=== PATIENT | male | born 1930 | race Caucasian/White ===

== ENCOUNTER 2016-04-23 20:54 | Emergency (ER) | payer MEDICARE ==
--- NOTE | 2016-04-23 21:19 | ER Document Report ---
ED Medical Screen (RME) - General Chief Complaint: Leg Pain Stated Complaint: POSSIBLE BLOOD CLOT Mode of Arrival: Wheelchair Information source: Patient Notes: Patient had a laminectomy L 3-4-5, performed yesterday (by Dr Brito at [facility]) complaining of right lower extremity pain. Pt denies any fever. Patient states that he was able to get up and ambulate until about 3 PM today whenever he started to have right lower extremities pain and weakness. Patient spoke with the surgeon who advised him to come to the hospital for further evaluation. I have greeted and performed a rapid initial assessment of this patient. A comprehensive ED assessment and evaluation of the patient, analysis of test results and completion of the medical decision making process will be conducted by additional ED providers. TRAVEL OUTSIDE OF THE [place] IN LAST 30 DAYS: No - Related Data Allergies/Adverse Reactions: No Known Allergies Allergy (Unverified 04/27/15 15:04) Past Medical History - Past Medical History Cardiac Medical History: Reports: Hx Hypertension - MEDICATED Denies: Hx Heart Attack Pulmonary Medical History: Denies: Hx Asthma Neurological Medical History: Denies: Hx Cerebrovascular Accident, Hx Seizures Renal/ Medical History: Reports: Hx Benign Prostatic Hyperplasia GI Medical History: Reports: Hx Hiatal Hernia. Denies: Hx Hepatitis, Hx Ulcer Musculoskeltal Medical History: Reports Hx Arthritis, Reports Hx Muscle Weakness Psychiatric Medical History: Reports: Hx Anxiety, Hx Depression Infectious Medical History: Denies: Hx Hepatitis Past Surgical History: Denies: Hx Open Heart Surgery, Hx Pacemaker Physical Exam - Vital signs Vitals: Temp Pulse Resp BP Pulse Ox 98.6 F 72 18 124/70 93 04/23/16 21:01 04/23/16 21:01 04/23/16 21:01 04/23/16 21:01 04/23/16 21:01 - Cardiovascular Pulses: Normal: Dorsalis pedis - Extremities General lower extremity: Tender - Right lower boyd any Course - Re-evaluation Re-evalutation: 04/23/16 21:[address] Palomo who advises MRI of lumbar spine - Vital Signs Vital signs: Temp Pulse Resp BP Pulse Ox 98.6 F 72 18 124/70 93 04/23/16 21:01 04/23/16 21:01 04/23/16 21:01 04/23/16 21:01 04/23/16 21:01
--- NOTE | 2016-04-23 23:59 | ER Document Report ---
ED General - General Chief Complaint: Weakness Stated Complaint: POSSIBLE BLOOD CLOT Mode of Arrival: Wheelchair Notes: Patient is an 85-year-old male status post laminectomy surgery at the L4-5 junction yesterday who presents today with shooting pain down his right buttock and leg. Does describe the pain as a severe, intermittent shooting pain. It is worsened by attempts at walking. Moderately improved by oxycodone. No history of similar symptoms in the past. Spoke to the on-call physician who recommended he come to the emergency department for evaluation of a possible DVT. He has no history of such. He is not taking any anticoagulation. He has not had any falls or trauma to the area since the surgery. He has not had any weakness, numbness, bowel or bladder incontinence, or urinary retention. TRAVEL OUTSIDE OF THE [place] IN LAST 30 DAYS: No - Related Data Allergies/Adverse Reactions: No Known Allergies Allergy (Unverified 04/27/15 15:04) Past Medical History - General Information source: Patient - Social History Smoking Status: Never Smoker Frequency of alcohol use: None Drug Abuse: None Lives with: Spouse/Significant other Family History: Reviewed & Not Pertinent Patient has suicidal ideation: No Patient has homicidal ideation: No - Past Medical History Cardiac Medical History: Reports: Hx Hypertension - MEDICATED Denies: Hx Heart Attack Pulmonary Medical History: Denies: Hx Asthma Neurological Medical History: Denies: Hx Cerebrovascular Accident, Hx Seizures Renal/ Medical History: Reports: Hx Benign Prostatic Hyperplasia. Denies: Hx Peritoneal Dialysis GI Medical History: Reports: Hx Hiatal Hernia. Denies: Hx Hepatitis, Hx Ulcer Musculoskeltal Medical History: Reports Hx Arthritis, Reports Hx Muscle Weakness Psychiatric Medical History: Reports: Hx Anxiety, Hx Depression Infectious Medical History: Denies: Hx Hepatitis Past Surgical History: Denies: Hx Open Heart Surgery, Hx Pacemaker Review of Systems - Review of Systems Notes: Constitutional: Negative for fever. HENT: Negative for sore throat. Eyes: Negative for visual changes. Cardiovascular: Negative for chest pain. Respiratory: Negative for shortness of breath. Gastrointestinal: Negative for abdominal pain, vomiting or diarrhea. Genitourinary: Negative for dysuria. Musculoskeletal: Positive for back pain right-sided sciatic pain. Skin: Negative for rash. Neurological: Negative for headaches, weakness or numbness. 10 point ROS negative except as marked above and in HPI. Physical Exam - Vital signs Vitals: Temp Pulse Resp BP Pulse Ox 98.6 F 72 18 124/70 93 04/23/16 21:01 04/23/16 21:01 04/23/16 21:01 04/23/16 21:01 04/23/16 21:01 Interpretation: Normal Notes: PHYSICAL EXAMINATION: GENERAL: Well-appearing, well-nourished and in no acute distress. HEAD: Atraumatic, normocephalic. EYES: Pupils equal round and reactive to light, extraocular movements intact, sclera anicteric, conjunctiva are normal. ENT: nares patent, oropharynx clear without exudates. Moist mucous membranes. NECK: Normal range of motion, supple without lymphadenopathy LUNGS: Breath sounds clear to auscultation bilaterally and equal. No wheezes rales or rhonchi. HEART: Regular rate and rhythm without murmurs ABDOMEN: Soft, nontender, normoactive bowel sounds. No guarding, no rebound. No masses appreciated. Back: Excisional site on the mid lumbar spine appears to be well-healing, no. Drainage or surrounding erythema. EXTREMITIES: Positive right straight leg test. Patient is able to ambulate. NEUROLOGICAL: 5 out of 5 strength both distally and proximally bilateral lower extremities. 2+ patellar reflexes bilaterally. No clonus. Sensation grossly intact in the bilateral lower extremities. Patient is able to ambulate without difficulty. PSYCH: Normal mood, normal affect. SKIN: Warm, Dry, normal turgor, no rashes or lesions noted. Course - Re-evaluation Re-evalutation: 04/23/16 23:57 Patient presents with a clinical history and exam most consistent with acute sciatic nerve root irritation in the setting of a recent laminectomy. No signs of infection around the incisional site. Patient is ambulatory without difficulty. Full strength and sensation in the bilateral lower extremities. Clinical history is not consistent with acute DVT and the venous Doppler study is unremarkable without any evidence of an acute clot. At this time will discharge with return precautions and follow-up recommendations. Verbal discharge instructions given a the bedside and opportunity for questions given. Medication warnings reviewed. Patient is in agreement with this plan and has verbalized understanding of return precautions and the need for primary care follow-up in the next 24-72 hours. - Vital Signs Vital signs: Temp Pulse Resp BP Pulse Ox 97.9 F 62 16 110/61 92 04/24/16 00:19 04/24/16 00:19 04/24/16 00:19 04/24/16 00:19 04/24/16 00:19 Discharge - Discharge Clinical Impression: Right sciatic nerve pain Condition: Good Disposition: HOME, SELF-CARE Additional Instructions: Her pain is likely due to an irritation of her sciatic nerve on the right side. This should improve as the swelling and inflammation from your surgery decreases. For your pain: You can take 1-2 of the 5 mg Percocet every 4 hours. Do not exceed more than 12 tablets in 24 hours. Please follow closely with your surgeon. Return if you develop bowel or bladder incontinence, urinary retention, have worsening of your pain, or have any other symptoms that are concerning to you. Referrals: EDGAR FOUNTAIN MD [Primary Care Provider] - Follow up as needed
[2016-04-24 00:22] VITALS: BP 110/61
== END 2016-04-24 00:23 | disposition home or self-care (01) ==
LOC: ER 20:54
DX: M54.31 Sciatica, right side (principal); R53.1 Weakness
CPT/HCPCS: 93971; 99283

== ENCOUNTER 2016-08-13 19:20 | Emergency (ER) | payer MEDICARE ==
--- NOTE | 2016-08-13 21:24 | RADIOLOGY REPORT (SQ) ---
EXAM DESCRIPTION: CT SOFT TISSUE NECK WITHOUT COMPLETED DATE/TIME: 08/13/2016 9:00 pm REASON FOR STUDY: foreign body in throat COMPARISON: None. TECHNIQUE: Noncontrast scanning from skull base through lung apices with review of bone, soft tissue and lung windows. Reconstructed coronal and sagittal MPR images reviewed. All images stored on PAC S. All CT scanners at this facility use dose modulation, iterative reconstruction, and/or weight based d osing when appropriate to reduce radiation dose to as low as reasonably achievable (ALARA). [facility]: Dose Right [facility]: CareDose [facility]: Dose Right [facility]: Teradose 4D [facility]: dough RADIATION DOSE: 13.47 mGy. LIMITATIONS: Study is limited due to motion artifact and artifact related to dental hardware. FINDINGS: SKULL BASE: Intact. MAJOR SALIVARY GLANDS: No solid or cystic masses. No inflammatory changes. LYMPHADENOPATHY: No adenopathy. MUCOSAL MASSES OR ASYMMETRY: No mucosal masses or asymmetry. LARYNX/CORDS: No abnormal findings. LUNG APICES: Clear. BONES: Degenerative changes are identified in the cervical spine. THYROID: Normal size. No masses. PARANASAL SINUSES: Clear. OTHER: No radiopaque foreign body is identified. The visualized portions of the esophagus appears so mewhat distended with an air-fluid level being identified and the possibility of a distal obstruction should be considered. IMPRESSION: No radiopaque foreign body is identified. The visualized portions of the esophagus appe ars somewhat distended with an air-fluid level being identified and the possibility of a distal obstr uction should be considered. Other findings as noted above. TECHNICAL DOCUMENTATION: JOB ID: [id number] Quality ID # [id number]: Final reports with documentation of one or more dose reduction techniques (e.g., Au tomated exposure control, adjustment of the mA and/or kV according to patient size, use of iterative reconstruction technique) 2010 [employer]- All Rights Reserved
[2016-08-13] MEDS ORDERED: NITROGLYCERIN 0.4 MG/TAB 25 TAB/BOTTLE SL ONE (22:42)
--- NOTE | 2016-08-13 22:43 | ER Document Report ---
ED Foreign Body - General Chief Complaint: Swallowed Foreign Body Stated Complaint: SOMETHING LODGED IN THROAT Time Seen by Provider: 08/13/16 22:33 Mode of Arrival: Ambulatory Information source: Patient TRAVEL OUTSIDE OF THE [place] IN LAST 30 DAYS: No - HPI Patient complains to provider of: Esophageal foreign body Onset: This afternoon Onset/Duration: Sudden, Persistent Quality of pain: Achy Severity: Moderate Pain Level: 3 Exacerbated by: Denies Relieved by: Denies Similar symptoms previously: Yes - Self resolving Recently seen / treated by doctor: Yes Notes: Patient is an 86-year-old male who presents to the emergency room complaining of esophageal foreign body, around 5 PM he ate dinner which consisted of rice with codfish and 3 prather salad, since then he has been unable to swallow liquid or foreign bodies, he does report a history of this in the past, however it self resolved after some time, he did have a colonoscopy performed earlier in the morning - Related Data Allergies/Adverse Reactions: No Known Allergies Allergy (Unverified 08/13/16 19:31) Past Medical History - General Information source: Patient - Social History Smoking Status: Never Smoker Family History: Reviewed & Not Pertinent - Past Medical History Cardiac Medical History: Reports: Hx Hypertension - MEDICATED Denies: Hx Heart Attack Pulmonary Medical History: Denies: Hx Asthma Neurological Medical History: Denies: Hx Cerebrovascular Accident, Hx Seizures Renal/ Medical History: Reports: Hx Benign Prostatic Hyperplasia. Denies: Hx Peritoneal Dialysis GI Medical History: Reports: Hx Hiatal Hernia. Denies: Hx Hepatitis, Hx Ulcer Musculoskeltal Medical History: Reports Hx Arthritis, Reports Hx Muscle Weakness Psychiatric Medical History: Reports: Hx Anxiety, Hx Depression Infectious Medical History: Denies: Hx Hepatitis Past Surgical History: Denies: Hx Open Heart Surgery, Hx Pacemaker - Immunizations Hx Diphtheria, Pertussis, Tetanus Vaccination: Yes Review of Systems - Review of Systems Constitutional: No symptoms reported EENT: See HPI Cardiovascular: No symptoms reported Respiratory: No symptoms reported Gastrointestinal: See HPI, Vomiting Genitourinary: No symptoms reported Male Genitourinary: No symptoms reported Musculoskeletal: No symptoms reported Skin: No symptoms reported Hematologic/Lymphatic: No symptoms reported Neurological/Psychological: No symptoms reported -: Yes All other systems reviewed and negative Physical Exam - Vital signs Vitals: Temp Pulse BP Pulse Ox 98.0 F 65 163/100 H 100 08/13/16 19:35 08/13/16 19:35 08/13/16 19:35 08/13/16 19:35 - General General appearance: Appears well In distress: None Notes: - General General appearance: Appears well, Alert In distress: None - HEENT Head: Normocephalic, Atraumatic Eyes: Normal Conjunctiva: Normal Extraocular movements intact: Yes Eyelashes: Normal Pupils: PERRL - Respiratory Respiratory status: No respiratory distress - Cardiovascular Rhythm: Regular - Abdominal Inspection: Normal - Back Back: Normal - Extremities General upper extremity: Normal inspection General lower extremity: Normal inspection - Neurological Neuro grossly intact: Yes Orientation: AAOx4 Efrain Coma Scale Eye Opening: Spontaneous [place] Coma Scale Verbal: Oriented [place] Coma Scale Motor: Obeys Commands [place] Coma Scale Total: 15 - Psychological Associated symptoms: Normal affect, Normal mood - Skin Skin Temperature: Warm Skin Moisture: Dry Skin Color: Normal Course - Re-evaluation Re-evalutation: 08/13/16 23:53 Patient was given a dose of glucagon as well as sublingual nitro, then he was given a soda to drink, he was able to initially pass all of the soda, however had an episode of vomiting, there does appear to be food particles in his vomit , he was then given an additional drink which he tolerated well and reports feeling much better Patient reports feeling much better, able to tolerate p.o. at this point in time , he was advised to follow-up with his briefcase sewer first thing in the morning, eating food in small bites and portions, return if symptoms worsen, patient and at bedside acknowledge understanding and agreement with this plan - Vital Signs Vital signs: Temp Pulse Resp BP Pulse Ox 99.0 F 65 15 144/80 H 97 08/13/16 23:15 08/13/16 19:35 08/14/16 00:09 08/14/16 00:09 08/14/16 00:09 - Diagnostic Test Radiology reviewed: Image reviewed, Reports reviewed Discharge - Discharge Clinical Impression: Esophageal obstruction due to food impaction Condition: Stable Disposition: HOME, SELF-CARE Instructions: Esophageal Foreign Body ([facility]) Additional Instructions: Follow-up with your briefcase sewer first thing in the morning. Always eat small bites of food with small portions. Return to the emergency room immediately if symptoms worsen or any additional concerns.
[2016-08-13] MEDS ORDERED: NORMAL SALINE 1000 ML 1,000 ML IV PRN (22:44)
[2016-08-13] MEDS ORDERED: GLUCAGON,HUMAN RECOMB 1 MG INJ SUBCUT ONE (22:45)
[2016-08-14 07:37] VITALS: BP 149/76
== END 2016-08-14 00:10 | disposition home or self-care (01) ==
LOC: ER 19:20
DX: T18.128A Food in esophagus causing other injury, initial encounter (principal); X58.XXXA Exposure to other specified factors, initial encounter; I10 Essential (primary) hypertension
CPT/HCPCS: 99284; 96372; 96360; 70490; J1610; J7030

== ENCOUNTER 2018-05-05 11:22 | Inpatient (IN) | payer MEDICARE ==
--- NOTE | 2018-05-05 12:40 | ER Document Report ---
ED Medical Screen (RME) - General Chief Complaint: Cough Stated Complaint: COUGH,CONGESTION, DIARRHEA Time Seen by Provider: 05/05/18 12:27 Mode of Arrival: Ambulatory Information source: Patient Notes: 87-year-old male presents with complaint of cough and diarrhea. Patient has recently taken clindamycin for a dental procedure. Advised by his physician Dr. Longoria to come to the emergency department. I have greeted and performed a rapid initial assessment of this patient. A comprehensive ED assessment and evaluation of the patient, analysis of test results and completion of medical decision making process we will be contacted by additional ED providers. PHYSICAL EXAMINATION: Vital signs reviewed GENERAL: Well-appearing, well-nourished and in no acute distress. LUNGS: No respiratory distress Musculoskeletal: Normal range of motion NEUROLOGICAL: Normal speech, PSYCH: Normal mood, normal affect. SKIN: Warm, Dry, normal turgor, no rashes or lesions noted. TRAVEL OUTSIDE OF THE [place] IN LAST 30 DAYS: No - HPI Onset: Last week Onset/Duration: Persistent Quality of pain: No pain Associated Symptoms: Cough (productive), Diarrhea. denies: Abdominal pain, Nausea Exacerbated by: Denies Relieved by: Denies Similar symptoms previously: Yes Recently seen / treated by doctor: Yes - Related Data Smoking: Non-smoker Frequency of alcohol use: None Drug Abuse: None Allergies/Adverse Reactions: No Known Allergies Allergy (Verified 05/05/18 12:11) Past Medical History - Social History Frequency of alcohol use: None Drug Abuse: None - Past Medical History Cardiac Medical History: Reports: Hx Hypertension - MEDICATED Denies: Hx Heart Attack Pulmonary Medical History: Denies: Hx Asthma Neurological Medical History: Denies: Hx Cerebrovascular Accident, Hx Seizures Renal/ Medical History: Reports: Hx Benign Prostatic Hyperplasia. Denies: Hx Peritoneal Dialysis GI Medical History: Reports: Hx Hiatal Hernia. Denies: Hx Hepatitis, Hx Ulcer Musculoskeltal Medical History: Reports Hx Arthritis, Reports Hx Muscle Weakness Psychiatric Medical History: Reports: Hx Anxiety, Hx Depression Infectious Medical History: Denies: Hx Hepatitis Past Surgical History: Reports: Hx Orthopedic Surgery - back surgery. Denies: Hx Open Heart Surgery, Hx Pacemaker - Immunizations Hx Diphtheria, Pertussis, Tetanus Vaccination: Yes Physical Exam - Vital signs Vitals: Temp Pulse Resp BP Pulse Ox 98.8 F 61 16 100/73 96 05/05/18 11:42 05/05/18 11:42 05/05/18 11:42 05/05/18 11:42 05/05/18 11:42 Course - Vital Signs Vital signs: Temp Pulse Resp BP Pulse Ox 98.8 F 61 16 100/73 96 05/05/18 11:42 05/05/18 11:42 05/05/18 11:42 05/05/18 11:42 05/05/18 11:42
[2018-05-05 13:13] LABS: APPEARANCE,URINE SLIGHTLY-CLOUDY; BILIRUBIN,URINE NEGATIVE (NEGATIVE); COLOR,URINE YELLOW; GLUCOSE, URINE NEGATIVE (NEGATIVE); KETONES,URINE NEGATIVE (NEGATIVE); LEUKOCYTE ESTERASE,URINE NEGATIVE (NEGATIVE); NITRITE,URINE NEGATIVE (NEGATIVE); PROTEIN,URINE NEGATIVE (NEGATIVE); UROBILINOGEN,URINE NEGATIVE mg/dL (<2.0)
[2018-05-05 13:29] LABS: ABSOLUTE EOSINOPHILS # (AUTO) 0.2 10^3/uL (0.0-0.6); ABSOLUTE LYMPHOCYTES (AUTO) 0.6 10^3/uL (0.5-4.7); ABSOLUTE NEUT (AUTO) 4.6 10^3/uL (1.7-8.2); BASOPHILS % (AUTO) 0.3 % (0-2); EOSINOPHILS % (AUTO) 3.4 % (0-6); HEMOGLOBIN 14.6 g/dL (13.5-17.0); LYMPHOCYTES % (AUTO) 9.9 % (13-45); MEAN CORPUSCULAR HEMOGLOBIN 32.1 pg (27.0-33.4); MEAN CORPUSCULAR HGB CONC 34.8 g/dL (32.0-36.0); MEAN CORPUSCULAR VOLUME 92 fl (80-97); MONOCYTES % (AUTO) 15.5 % (3-13); PLATELET COUNT 202 10^3/uL (150-450); RED BLOOD COUNT 4.56 10^6/uL (4.35-5.55); RED CELL DISTRIBUTION WIDTH 13.8 % (11.5-14.0); SEGMENTED NEUTROPHILS % (AUTO) 70.9 % (42-78); TOTAL CELLS COUNTED % (AUTO) 100 %; WHITE BLOOD COUNT 6.4 10^3/uL (4.0-10.5)
[2018-05-05 13:50] LABS: ALANINE AMINOTRANSFERASE 40 U/L (21-72); ALBUMIN 3.6 g/dL (3.5-5.0); ALKALINE PHOSPHATASE 92 U/L (38-126); ANION GAP 8 (5-19); ASPARTATE AMINO TRANSFERASE 38 U/L (17-59); BILIRUBIN,DIRECT 0.4 mg/dL (0.0-0.4); BILIRUBIN,TOTAL 0.8 mg/dL (0.2-1.3); BLOOD UREA NITROGEN 13 mg/dL (7-20); CALCIUM 8.5 mg/dL (8.4-10.2); CARBON DIOXIDE 31 mmol/L (22-30); CHLORIDE 98 mmol/L (98-107); GLUCOSE 96 mg/dL (75-110); POTASSIUM 3.3 mmol/L (3.6-5.0); SODIUM 136.6 mmol/L (137-145); TOTAL PROTEIN 6.7 g/dL (6.3-8.2)
--- NOTE | 2018-05-05 14:17 | RADIOLOGY REPORT (SQ) ---
EXAM DESCRIPTION: CHEST 2 VIEWS COMPLETED DATE/TIME: 05/05/2018 1:45 pm REASON FOR STUDY: cough COMPARISON: None. EXAM PARAMETERS: NUMBER OF VIEWS: two views TECHNIQUE: Digital Frontal and Lateral radiographic views of the chest acquired. RADIATION DOSE: NA LIMITATIONS: none FINDINGS: LUNGS AND PLEURA: No opacities, masses or pneumothorax. No pleural effusion. MEDIASTINUM AND HILAR STRUCTURES: No masses or contour abnormalities. HEART AND VASCULAR STRUCTURES: Heart upper limits of normal size. No evidence for failure. BONES: No acute findings. HARDWARE: None in the chest. OTHER: No other significant finding. IMPRESSION: NO ACUTE RADIOGRAPHIC FINDING IN THE CHEST. TECHNICAL DOCUMENTATION: JOB ID: [id number] [employer]- All Rights Reserved Reading location - IP/workstation name: [email or web address]
[2018-05-05] MEDS ORDERED: RINGERS SOLUTION,LACTATED 1,000 ML IV ONE (17:17)
[2018-05-05] MEDS ORDERED: IPRATROPIUM/ALBUTEROL 0.5-2.5 MG/3 ML AMPUL NEB ONE (17:17)
[2018-05-05] MEDS ORDERED: METRONIDAZOLE 500 MG TABLET PO ONE (17:18)
--- NOTE | 2018-05-05 17:24 | ER Document Report ---
ED General - General Chief Complaint: Cough Stated Complaint: COUGH,CONGESTION, DIARRHEA Time Seen by Provider: 05/05/18 12:27 Mode of Arrival: Ambulatory Information source: Patient Notes: 87-year-old male with hypertension, myasthenia gravis, GERD presents with complaint of cough and diarrhea. Patient reports a persistent dry cough for 1 week. He denies any associated shortness of breath or chest pain. He states that his primary care physician Dr. Longoria sent him over to rule out pneumonia. Patient also reports copious amounts of diarrhea for 1 week. He denies any black or bloody stools. Patient was treated with clindamycin for a dental procedure he had approximately 3 weeks ago. Patient has some abdominal cramping but no focal abdominal tenderness. TRAVEL OUTSIDE OF THE [place] IN LAST 30 DAYS: No - HPI Onset: Last week Onset/Duration: Persistent Quality of pain: Cramping Severity: Mild Associated symptoms: Nonproductive cough, Diarrhea. denies: Chest pain, Fever, Nausea, Vomiting, Shortness of breath Exacerbated by: Denies Relieved by: Denies Similar symptoms previously: No Recently seen / treated by doctor: No - Related Data Allergies/Adverse Reactions: No Known Allergies Allergy (Verified 05/05/18 12:11) Past Medical History - General Information source: Patient - Social History Smoking Status: Never Smoker Frequency of alcohol use: None Drug Abuse: None Lives with: Family Family History: Reviewed & Not Pertinent Patient has suicidal ideation: No Patient has homicidal ideation: No - Past Medical History Cardiac Medical History: Reports: Hx Hypertension - MEDICATED Denies: Hx Heart Attack Pulmonary Medical History: Denies: Hx Asthma Neurological Medical History: Denies: Hx Cerebrovascular Accident, Hx Seizures Renal/ Medical History: Reports: Hx Benign Prostatic Hyperplasia. Denies: Hx Peritoneal Dialysis GI Medical History: Reports: Hx Hiatal Hernia. Denies: Hx Hepatitis, Hx Ulcer Musculoskeletal Medical History: Reports Hx Arthritis, Reports Hx Muscle Weakness Psychiatric Medical History: Reports: Hx Anxiety, Hx Depression Infectious Medical History: Denies: Hx Hepatitis Past Surgical History: Reports: Hx Orthopedic Surgery - back surgery. Denies: Hx Open Heart Surgery, Hx Pacemaker - Immunizations Hx Diphtheria, Pertussis, Tetanus Vaccination: Yes Review of Systems - Review of Systems Constitutional: Weakness, Recent illness EENT: denies: Blurred vision, Difficulty swallowing Cardiovascular: denies: Chest pain, Palpitations, Dizziness Respiratory: Cough, Short of breath - With coughing only. denies: Hurts to breathe Gastrointestinal: Diarrhea. denies: Nausea, Vomiting, Poor appetite, Black stools Genitourinary: denies: Dysuria Male Genitourinary: No symptoms reported Musculoskeletal: denies: Back pain Skin: denies: Rash Hematologic/Lymphatic: No symptoms reported Neurological/Psychological: denies: Confusion, Lost consciousness, Headaches -: Yes All other systems reviewed and negative Physical Exam - Vital signs Vitals: Temp Pulse Resp BP Pulse Ox 98.8 F 61 16 100/73 96 05/05/18 11:42 05/05/18 11:42 05/05/18 11:42 05/05/18 11:42 05/05/18 11:42 - Notes Notes: PHYSICAL EXAMINATION: GENERAL: Well-appearing, well-nourished and in no acute distress. HEAD: Atraumatic, normocephalic. EYES: Pupils equal round and reactive to light, extraocular movements intact, sclera anicteric, conjunctiva are normal. ENT: Nares patent, oropharynx clear without exudates. Moist mucous membranes. NECK: Normal range of motion, supple without lymphadenopathy LUNGS: Breath sounds clear to auscultation bilaterally and equal. No wheezes rales or rhonchi. HEART: Regular rate and rhythm without murmurs ABDOMEN: Soft, nontender, nondistended abdomen. No guarding, no rebound. No masses appreciated. Musculoskeletal: Normal range of motion, no pitting or edema. No cyanosis. NEUROLOGICAL: Cranial nerves grossly intact. Normal speech, normal gait. Normal sensory, motor exams PSYCH: Normal mood, normal affect. SKIN: Warm, Dry, normal turgor, no rashes or lesions noted. Course - Re-evaluation Re-evalutation: 05/05/18 17:27 Laboratory 05/05/18 05/05/18 05/05/18 12:44 13:10 13:10 WBC 6.4 RBC 4.56 Hgb 14.6 Hct 42.0 MCV 92 MCH 32.1 MCHC 34.8 RDW 13.8 Plt Count 202 Seg Neutrophils % 70.9 Lymphocytes % 9.9 L Monocytes % 15.5 H Eosinophils % 3.4 Basophils % 0.3 Absolute Neutrophils 4.6 Absolute Lymphocytes 0.6 Absolute Monocytes 1.0 Absolute Eosinophils 0.2 Absolute Basophils 0.0 Sodium 136.6 L Potassium 3.3 L Chloride 98 Carbon Dioxide 31 H Anion Gap 8 BUN 13 Creatinine 0.73 Est GFR ( Amer) > 60 Est GFR (Non-Af Amer) > 60 Glucose 96 Calcium 8.5 Total Bilirubin 0.8 Direct Bilirubin 0.4 Neonat Total Bilirubin Not Reportable Neonat Direct Bilirubin Not Reportable Neonat Indirect Bili Not Reportable AST 38 ALT 40 Alkaline Phosphatase 92 Total Protein 6.7 Albumin 3.6 Urine Color YELLOW Urine Appearance SLIGHTLY-CLOUDY Urine pH 7.0 Ur Specific [place] 1.010 Urine Protein NEGATIVE Urine Glucose (UA) NEGATIVE Urine Ketones NEGATIVE Urine Blood MODERATE H Urine Nitrite NEGATIVE Urine Bilirubin NEGATIVE Urine Urobilinogen NEGATIVE Ur Leukocyte Esterase NEGATIVE Urine WBC (Auto) 1 Urine RBC (Auto) 3 U Hyaline Cast (Auto) 3 Urine Mucus (Auto) RARE Urine Ascorbic Acid NEGATIVE C. difficile Tox (PCR) 05/05/18 14:29 WBC RBC Hgb Hct MCV MCH MCHC RDW Plt Count Seg Neutrophils % Lymphocytes % Monocytes % Eosinophils % Basophils % Absolute Neutrophils Absolute Lymphocytes Absolute Monocytes Absolute Eosinophils Absolute Basophils Sodium Potassium Chloride Carbon Dioxide Anion Gap BUN Creatinine Est GFR ( Amer) Est GFR (Non-Af Amer) Glucose Calcium Total Bilirubin Direct Bilirubin Neonat Total Bilirubin Neonat Direct Bilirubin Neonat Indirect Bili AST ALT Alkaline Phosphatase Total Protein Albumin Urine Color Urine Appearance Urine pH Ur Specific [place] Urine Protein Urine Glucose (UA) Urine Ketones Urine Blood Urine Nitrite Urine Bilirubin Urine Urobilinogen Ur Leukocyte Esterase Urine WBC (Auto) Urine RBC (Auto) U Hyaline Cast (Auto) Urine Mucus (Auto) Urine Ascorbic Acid C. difficile Tox (PCR) POSITIVE Chest X-Ray 05/05/18 12:30 IMPRESSION: NO ACUTE RADIOGRAPHIC FINDING IN THE CHEST. Temp Pulse Resp BP Pulse Ox 98.8 F 61 19 129/70 H 97 05/05/18 11:42 05/05/18 11:42 05/05/18 17:01 05/05/18 17:01 05/05/18 17:01 05/05/18 20:03 87-year-old male presents with complaint of explosive diarrhea for 1 week. Vital signs reviewed and within normal limits. Patient does not appear toxic or dehydrated. He is in no acute distress. Patient has no focal abdominal tenderness. Patient found to be C. difficile positive, likely secondary to recent clindamycin use. Patient administered IV fluids, Flagyl during his ED course. CBC is without leukocytosis or anemia. CMP does show mild hypokalemia. Patient was accepted for admission by the hospitalist. - Vital Signs Vital signs: Temp Pulse Resp BP Pulse Ox 98.8 F 61 18 159/81 H 95 05/05/18 11:42 05/05/18 11:42 05/05/18 19:01 05/05/18 19:01 05/05/18 18:01 - Laboratory Result Diagrams: 05/05/18 13:10 05/05/18 13:10 Laboratory results interpreted by me: 05/05/18 05/05/18 05/05/18 12:44 13:10 13:10 Lymphocytes % 9.9 L Monocytes % 15.5 H Sodium 136.6 L Potassium 3.3 L Carbon Dioxide 31 H Urine Blood MODERATE H - Diagnostic Test Radiology reviewed: Image reviewed, Reports reviewed Discharge - Discharge Clinical Impression: C. difficile diarrhea, Cough, Weakness Condition: Good Disposition: ADMITTED INPATIENT Admitting Provider: Hospitalist Unit Admitted: Telemetry
[2018-05-05] MEDS ORDERED: NORMAL SALINE 1000 ML 1,000 ML IV PRN (18:27)
[2018-05-05] MEDS ORDERED: ACETAMINOPHEN 325 MG TABLET PO PRN (18:27)
--- NOTE | 2018-05-05 18:44 | PDOC H&P ---
History of Present Illness Admission Date/PCP: 05/05/18 17:33 EDGAR FOUNTAIN MD Patient complains of: Severe diarrhea History of Present Illness: LARA MULLINS is a 87 year old male with history of hypertension, depression, came to the emergency room with explosive diarrhea for the last 6 days. Prior to this patient was started on p.o. clindamycin for her dental abscess. No fever no nausea no vomiting's reported. Family told me patient has a low-grade fever 99.4, 99.6 like that. Patient is also complaining of increasing bloating sensation in the abdomen. No other complaints. No blood in the stool. Stool positive for C. difficile in the ER. Patient was on contact isolation. medical consult was called for further management. Past Medical History Cardiac Medical History: Reports: Hypertension - MEDICATED Denies: Myocardial Infarction Pulmonary Medical History: Denies: Asthma Neurological Medical History: Denies: Seizures GI Medical History: Reports: Hiatal Hernia Denies: Hepatitis Musculoskeltal Medical History: Reports: Arthritis Psychiatric Medical History: Reports: Depression Hematology: Denies: Anemia, Sickle Cell Disease Past Surgical History Past Surgical History: Reports: Orthopedic Surgery - back surgery Denies: Pacemaker Social History Lives with: Family Smoking Status: Never Smoker Frequency of Alcohol Use: Social Hx Recreational Drug Use: No Drugs: None - Advance Directive Resuscitation Status: Full Code Family History Family History: Reviewed & Not Pertinent Parental Family History Reviewed: Yes - Brother has history of spinal stenosis/hypertension Children Family History Reviewed: Yes Sibling(s) Family History Reviewed.: Yes Medication/Allergy Home Medications: Amlodipine Besylate 10 mg PO DAILY 04/10/15 Finasteride [Proscar 5 mg Tablet] 5 mg PO DAILY 04/10/15 Hydrochlorothiazide [Hydrodiuril 12.5 mg Capsule] 12.5 mg PO QAM 04/10/15 Irbesartan [Avapro] 300 mg PO DAILY 04/10/15 Levothyroxine Sodium [Synthroid] 137 mcg PO DAILY 04/10/15 Primidone [Mysoline 250 Mg Tablet] 250 mg PO DAILY 04/10/15 Propanolol 60 mg PO DAILY 04/10/15 Citalopram Hydrobromide [Celexa 40 mg Tablet] 2 tab PO DAILY 05/05/18 Allergies/Adverse Reactions: No Known Allergies Allergy (Verified 05/05/18 12:11) Review of Systems Constitutional: PRESENT: fatigue, fever(s), weakness Eyes: ABSENT: visual disturbances Ears: ABSENT: hearing changes Nose, Mouth, and Throat: ABSENT: sore throat Cardiovascular: ABSENT: chest pain, dyspnea on exertion, edema, orthropnea, palpitations Respiratory: ABSENT: cough, hemoptysis Gastrointestinal: PRESENT: diarrhea. ABSENT: nausea, vomiting Genitourinary: ABSENT: dysuria, hematuria Neurological: ABSENT: abnormal gait, abnormal speech, confusion, dizziness, focal weakness, syncope Psychiatric: ABSENT: anxiety, depression, homidical ideation, suicidal ideation Physical Exam Vital Signs: Temp Pulse Resp BP Pulse Ox 98.8 F 61 19 129/70 H 97 05/05/18 11:42 05/05/18 11:42 05/05/18 17:01 05/05/18 17:01 05/05/18 17:01 Intake & Output 05/04/18 05/05/18 05/06/18 06:59 06:59 06:59 Weight 85 kg General appearance: PRESENT: no acute distress Head exam: PRESENT: atraumatic Eye exam: PRESENT: PERRLA Mouth exam: PRESENT: moist, tongue midline Neck exam: ABSENT: carotid bruit, JVD, lymphadenopathy, thyromegaly Respiratory exam: PRESENT: clear to auscultation germaine. ABSENT: rales, rhonchi, wheezes Cardiovascular exam: PRESENT: tachycardia GI/Abdominal exam: PRESENT: other - Patient has bloated abdomen, nontender bowel sounds are present. Extremities exam: PRESENT: full ROM. ABSENT: calf tenderness, clubbing, pedal edema Neurological exam: PRESENT: alert, awake, oriented to person, oriented to place, oriented to time, oriented to situation, CN II-XII grossly intact. ABSENT: motor sensory deficit Psychiatric exam: PRESENT: appropriate affect, normal mood. ABSENT: homicidal ideation, suicidal ideation Results Laboratory Results: 05/05/18 13:10 05/05/18 13:10 05/05/18 05/05/18 05/05/18 12:44 13:10 13:10 WBC 6.4 RBC 4.56 Hgb 14.6 Hct 42.0 MCV 92 MCH 32.1 MCHC 34.8 RDW 13.8 Plt Count 202 Seg Neutrophils % 70.9 Lymphocytes % 9.9 L Monocytes % 15.5 H Eosinophils % 3.4 Basophils % 0.3 Absolute Neutrophils 4.6 Absolute Lymphocytes 0.6 Absolute Monocytes 1.0 Absolute Eosinophils 0.2 Absolute Basophils 0.0 Sodium 136.6 L Potassium 3.3 L Chloride 98 Carbon Dioxide 31 H Anion Gap 8 BUN 13 Creatinine 0.73 Est GFR ( Amer) > 60 Est GFR (Non-Af Amer) > 60 Glucose 96 Calcium 8.5 Total Bilirubin 0.8 AST 38 ALT 40 Alkaline Phosphatase 92 Total Protein 6.7 Albumin 3.6 Urine Color YELLOW Urine Appearance SLIGHTLY-CLOUDY Urine pH 7.0 Ur Specific [place] 1.010 Urine Protein NEGATIVE Urine Glucose (UA) NEGATIVE Urine Ketones NEGATIVE Urine Blood MODERATE H Urine Nitrite NEGATIVE Ur Leukocyte Esterase NEGATIVE Urine WBC (Auto) 1 Urine RBC (Auto) 3 Impressions: Chest X-Ray 05/05/18 12:30 IMPRESSION: NO ACUTE RADIOGRAPHIC FINDING IN THE CHEST. Assessment & Plan - Diagnosis (1) C. difficile diarrhea Is this a current diagnosis for this admission?: Yes Plan: 05/05/2018-patient was admitted with explosive diarrhea after start taking clindamycin for dental abscess. This stool for C. difficile is positive in the ER. Plan is to admit the patient in telemetry. Started on IV fluids normal saline at 75 cc/h.'s to stop his home antihypertensive medications. Started on a p.o. vancomycin 125 mg every 6 hours. Patient was placed on contact isolation. Acute abdominal series was requested. Blood cultures urine cultures were requested. GI prophylaxis and DVT prophylaxis were initiated. Plan is to do the daily labs to monitor the electrolytes. Started on IV Zofran 4 mg every 6 hours for nausea. (2) Hypotension Is this a current diagnosis for this admission?: Yes Plan: 05/05/2018-patient blood pressure is 100/70 in the ER. Plan is to hold his home antihypertensive medications, started on IV fluids normal saline at 75 cc/h. To check the vitals every shift. (3) Weakness Is this a current diagnosis for this admission?: Yes Plan: 05/05/2018-patient is complaining of severe weakness secondary to diarrhea. Bed rest was advised and fall precautions are requested. (4) Spinal stenosis Is this a current diagnosis for this admission?: Yes Plan: 05/05/2018-patient has a spinal stenosis status post laminectomy several years ago. No complaints of any back pains. - Time Time Spent: 50 to 70 Minutes Critical Time spent with patient: 15-24 minutes Medications reviewed and adjusted accordingly: Yes Anticipated discharge: Home
--- NOTE | 2018-05-05 19:09 | RADIOLOGY REPORT (SQ) ---
EXAM DESCRIPTION: ABDOMEN 2 VIEWS COMPLETED DATE/TIME: 05/05/2018 7:00 pm REASON FOR STUDY: abd distension COMPARISON: None. NUMBER OF VIEWS: Two views. TECHNIQUE: Supine and erect/decubitus radiographic images of the abdomen acquired. LIMITATIONS: None. FINDINGS: FREE AIR: None. No abnormal gas collections. LUNG BASES: Clear. BOWEL GAS PATTERN: Nonobstructive pattern. No dilated loops or air fluid levels. CALCIFICATIONS: No suspicious calcifications. SOFT TISSUES: Ground-glass appearance of the abdomen. Suggests ascites. HARDWARE: None in the abdomen. BONES: No acute fracture. No worrisome bone lesions. OTHER: No other significant finding. IMPRESSION: No evidence for obstruction. Question ascites. TECHNICAL DOCUMENTATION: JOB ID: [id number] [employer]- All Rights Reserved Reading location - IP/workstation name: [email or web address]
[2018-05-05] MEDS ORDERED: VANCOMYCIN HCL INJ 500 MG VIAL ONE (22:53)
[2018-05-06] MEDS: VANCOMYCIN HCL INJ 500 MG VIAL PO SCH ×4 (00:22→17:53)
[2018-05-06] MEDS: FAMOTIDINE INJ/PF 20 MG/2 ML SDV IV SCH ×3 (00:22→21:45)
[2018-05-06 02:53] LABS: APPEARANCE,URINE SLIGHTLY-CLOUDY; BILIRUBIN,URINE NEGATIVE (NEGATIVE); COLOR,URINE AMBER; GLUCOSE, URINE NEGATIVE (NEGATIVE); KETONES,URINE NEGATIVE (NEGATIVE); LEUKOCYTE ESTERASE,URINE TRACE (NEGATIVE); NITRITE,URINE NEGATIVE (NEGATIVE); PROTEIN,URINE NEGATIVE (NEGATIVE); URINE SPECIFIC GRAVITY 1.016; UROBILINOGEN,URINE NEGATIVE mg/dL (<2.0)
[2018-05-06] MEDS: LEVOTHYROXINE SODIUM 0.15 MG TABLET PO SCH (05:32)
[2018-05-06 06:52] LABS: ABSOLUTE EOSINOPHILS # (AUTO) 0.2 10^3/uL (0.0-0.6); ABSOLUTE LYMPHOCYTES (AUTO) 0.9 10^3/uL (0.5-4.7); ABSOLUTE MONOCYTES (AUTO) 0.9 10^3/uL (0.1-1.4); ABSOLUTE NEUT (AUTO) 3.3 10^3/uL (1.7-8.2); BASOPHILS % (AUTO) 0.4 % (0-2); EOSINOPHILS % (AUTO) 3.1 % (0-6); HEMATOCRIT 35.7 % (37.9-51.0); HEMOGLOBIN 12.6 g/dL (13.5-17.0); LYMPHOCYTES % (AUTO) 16.2 % (13-45); MEAN CORPUSCULAR HEMOGLOBIN 32.2 pg (27.0-33.4); MEAN CORPUSCULAR HGB CONC 35.4 g/dL (32.0-36.0); MEAN CORPUSCULAR VOLUME 91 fl (80-97); MONOCYTES % (AUTO) 17.5 % (3-13); PLATELET COUNT 172 10^3/uL (150-450); RED BLOOD COUNT 3.93 10^6/uL (4.35-5.55); RED CELL DISTRIBUTION WIDTH 13.7 % (11.5-14.0); SEGMENTED NEUTROPHILS % (AUTO) 62.8 % (42-78); TOTAL CELLS COUNTED % (AUTO) 100 %; WHITE BLOOD COUNT 5.3 10^3/uL (4.0-10.5)
[2018-05-06 06:58] LABS: ALANINE AMINOTRANSFERASE 30 U/L (21-72); ALKALINE PHOSPHATASE 75 U/L (38-126); ANION GAP 6 (5-19); ASPARTATE AMINO TRANSFERASE 36 U/L (17-59); BILIRUBIN,DIRECT 0.3 mg/dL (0.0-0.4); BILIRUBIN,TOTAL 0.6 mg/dL (0.2-1.3); BLOOD UREA NITROGEN 13 mg/dL (7-20); CALCIUM 7.8 mg/dL (8.4-10.2); CARBON DIOXIDE 31 mmol/L (22-30); CHLORIDE 101 mmol/L (98-107); GLUCOSE 88 mg/dL (75-110); SODIUM 137.8 mmol/L (137-145); TOTAL PROTEIN 5.6 g/dL (6.3-8.2)
[2018-05-06 07:06] LABS: POTASSIUM 2.9 mmol/L (3.6-5.0)
--- NOTE | 2018-05-06 07:44 | EKG REPORT ---
SEVERITY:- ABNORMAL ECG - SINUS RHYTHM FIRST DEGREE AV BLOCK LEFT ANTERIOR FASCICULAR BLOCK NONSPECIFIC ST-T CHANGES , DIFFUSE EARLY PRECORDIAL TRANSITION, CONSIDER OLD TRUE POST WALL VA : Confirmed by: Steven Zacarias MD 06-May-2018 07:44:35
[2018-05-06] MEDS: POTASSI CL 20 MEQ/50 ML RIDER 20 MEQ/50 ML RTUPB IV SCH ×2 (08:28→10:51)
[2018-05-06] MEDS ORDERED: CITALOPRAM HYDROBROMIDE PO SCH (10:00)
[2018-05-06] MEDS ORDERED: PROPANOLOL 60 MG PO SCH (10:00)
[2018-05-06] MEDS ORDERED: (PENDING PHARMACY ID) (Irbesartan [Avapro] 300 MG) PO SCH (10:00)
[2018-05-06] MEDS ORDERED: (PENDING PHARMACY ID) (Levothyroxine Sodium [Synthroid] 137 MCG) PO SCH (10:00)
[2018-05-06] MEDS ORDERED: PROPRANOLOL HCL 20 MG TABLET PO SCH (10:00)
[2018-05-06] MEDS ORDERED: CITALOPRAM HYDROBROMIDE 20 MG TABLET PO SCH ×2 (10:00→14:00)
[2018-05-06] MEDS ORDERED: LEVOTHYROXINE SODIUM 0.112 MG TABLET PO SCH (10:00)
[2018-05-06] MEDS ORDERED: LEVOTHYROXINE SODIUM 0.025 MG TABLET PO SCH (10:00)
[2018-05-06] MEDS: FINASTERIDE 5 MG TABLET PO SCH (10:50)
[2018-05-06] MEDS: PRIMIDONE 250 MG TABLET PO SCH ×2 (10:51→21:48)
[2018-05-06] MEDS: CITALOPRAM HYDROBROMIDE 20 MG TABLET PO SCH (10:51)
[2018-05-06] MEDS: ENOXAPARIN SODIUM INJ 40 MG/0.4 ML DISP.SYRIN SUBCUT SCH (10:51)
[2018-05-06] MEDS: PROPRANOLOL HCL 20 MG TABLET PO SCH ×5 (10:51→21:48)
[2018-05-06] MEDS: AMLODIPINE BESYLATE 10 MG TABLET PO SCH (10:51)
--- NOTE | 2018-05-06 12:09 | PDOC PROGRESS REPORT ---
Subjective Progress Note for:: 05/06/18 Subjective:: 87 year old male with history of hypertension, depression, came to the emergency room with explosive diarrhea for the last 6 days. Prior to this patient was started on p.o. clindamycin for her dental abscess. No fever no nausea no vomiting's reported. Family told me patient has a low-grade fever 99.4, 99.6 like that. Patient is also complaining of increasing bloating sensation in the abdomen. No other complaints. No blood in the stool. Stool positive for C. difficile in the ER. Patient was on contact isolation. medical consult was called for further management. 05/06/2018-no acute events in the last 24 hours. Patient is afebrile. Potassium is dropped to 2.8 this morning we going to give IV K rider. Patient says he has a 2-3 loose bowel movements last night when it is semi-formed. Family said he has chest congestion and he is choking and coughing. The requested Xopenex nebulizations and Mucinex and those orders are placed. Patient is on contact isolation. Reason For Visit: DIARRHEA Physical Exam Vital Signs: Temp Pulse Resp BP Pulse Ox 98.3 F 67 17 161/79 H 95 05/06/18 08:25 05/06/18 08:25 05/06/18 08:25 05/06/18 08:25 05/06/18 08:25 Intake & Output 05/05/18 05/06/18 05/07/18 06:59 06:59 06:59 Intake Total 50 Balance 50 Weight 88.3 kg General appearance: PRESENT: no acute distress Head exam: PRESENT: atraumatic Eye exam: PRESENT: PERRLA Mouth exam: PRESENT: moist, tongue midline Teeth exam: PRESENT: poor dentation Neck exam: ABSENT: carotid bruit, JVD, lymphadenopathy, thyromegaly Respiratory exam: PRESENT: clear to auscultation germaine. ABSENT: rales, rhonchi, wheezes Cardiovascular exam: PRESENT: RRR. ABSENT: diastolic murmur, rubs, systolic murmur GI/Abdominal exam: PRESENT: other - Abdomen was distended and bloated. Bowel sounds are present. Neurological exam: PRESENT: alert, awake, oriented to person, oriented to place, oriented to time, oriented to situation, CN II-XII grossly intact. ABSENT: motor sensory deficit Psychiatric exam: PRESENT: appropriate affect, normal mood. ABSENT: homicidal ideation, suicidal ideation Results Laboratory Results: 05/06/18 05:55 05/06/18 05:55 05/05/18 05/05/18 05/05/18 12:44 13:10 13:10 WBC 6.4 RBC 4.56 Hgb 14.6 Hct 42.0 MCV 92 MCH 32.1 MCHC 34.8 RDW 13.8 Plt Count 202 Seg Neutrophils % 70.9 Lymphocytes % 9.9 L Monocytes % 15.5 H Eosinophils % 3.4 Basophils % 0.3 Absolute Neutrophils 4.6 Absolute Lymphocytes 0.6 Absolute Monocytes 1.0 Absolute Eosinophils 0.2 Absolute Basophils 0.0 Sodium 136.6 L Potassium 3.3 L Chloride 98 Carbon Dioxide 31 H Anion Gap 8 BUN 13 Creatinine 0.73 Est GFR ( Amer) > 60 Est GFR (Non-Af Amer) > 60 Glucose 96 Calcium 8.5 Total Bilirubin 0.8 AST 38 ALT 40 Alkaline Phosphatase 92 Total Protein 6.7 Albumin 3.6 Urine Color YELLOW Urine Appearance SLIGHTLY-CLOUDY Urine pH 7.0 Ur Specific [place] 1.010 Urine Protein NEGATIVE Urine Glucose (UA) NEGATIVE Urine Ketones NEGATIVE Urine Blood MODERATE H Urine Nitrite NEGATIVE Ur Leukocyte Esterase NEGATIVE Urine WBC (Auto) 1 Urine RBC (Auto) 3 05/06/18 05/06/18 05/06/18 02:20 05:55 05:55 WBC 5.3 RBC 3.93 L Hgb 12.6 L Hct 35.7 L MCV 91 MCH 32.2 MCHC 35.4 RDW 13.7 Plt Count 172 Seg Neutrophils % 62.8 Lymphocytes % 16.2 Monocytes % 17.5 H Eosinophils % 3.1 Basophils % 0.4 Absolute Neutrophils 3.3 Absolute Lymphocytes 0.9 Absolute Monocytes 0.9 Absolute Eosinophils 0.2 Absolute Basophils 0.0 Sodium 137.8 Potassium 2.9 L* Chloride 101 Carbon Dioxide 31 H Anion Gap 6 BUN 13 Creatinine 0.71 Est GFR ( Amer) > 60 Est GFR (Non-Af Amer) > 60 Glucose 88 Calcium 7.8 L Total Bilirubin 0.6 AST 36 ALT 30 Alkaline Phosphatase 75 Total Protein 5.6 L Albumin 3.0 L Urine Color MERLY Urine Appearance SLIGHTLY-CLOUDY Urine pH 6.0 Ur Specific [place] 1.016 Urine Protein NEGATIVE Urine Glucose (UA) NEGATIVE Urine Ketones NEGATIVE Urine Blood SMALL H Urine Nitrite NEGATIVE Ur Leukocyte Esterase TRACE H Urine WBC (Auto) 3 Urine RBC (Auto) 7 Impressions: Abdomen X-Ray 05/05/18 00:00 IMPRESSION: No evidence for obstruction. Question ascites. Chest X-Ray 05/05/18 12:30 IMPRESSION: NO ACUTE RADIOGRAPHIC FINDING IN THE CHEST. Assessment & Plan - Diagnosis (1) C. difficile diarrhea Is this a current diagnosis for this admission?: Yes Plan: 05/05/2018-patient was admitted with explosive diarrhea after start taking clindamycin for dental abscess. This stool for C. difficile is positive in the ER. Plan is to admit the patient in telemetry. Started on IV fluids normal saline at 75 cc/h.'s to stop his home antihypertensive medications. Started on a p.o. vancomycin 125 mg every 6 hours. Patient was placed on contact isolation. Acute abdominal series was requested. Blood cultures urine cultures were requested. GI prophylaxis and DVT prophylaxis were initiated. Plan is to do the daily labs to monitor the electrolytes. Started on IV Zofran 4 mg every 6 hours for nausea. 05/06/2018-patient was admitted with C. difficile diarrhea. He is on p.o. vancomycin 125 mg every 6 hours. On contact isolation. He had a to 3 loose bowel movements last night and 1 semisolid stool. Patient states he is feeling much better today. Plan is to continue the present management. (2) Hypotension Is this a current diagnosis for this admission?: Yes Plan: 05/05/2018-patient blood pressure is 100/70 in the ER. Plan is to hold his home antihypertensive medications, started on IV fluids normal saline at 75 cc/h. To check the vitals every shift. 05/06/2018-patient is admitted with hypotension 161/79. His blood pressures are restarted again except for hydrochlorothiazide. I am going to discontinue his IV fluids. Hypotension is resolved. (3) Weakness Is this a current diagnosis for this admission?: Yes Plan: 05/05/2018-patient is complaining of severe weakness secondary to diarrhea. Bed rest was advised and fall precautions are requested. 05/06/2018-patient came in with severe weakness possibly secondary to severe diarrhea. Patient said his weakness is improving. (4) Spinal stenosis Is this a current diagnosis for this admission?: Yes Plan: 05/05/2018-patient has a spinal stenosis status post laminectomy several years a go. No complaints of any back pains. 05/06/2018-patient has history of spinal stenosis status post laminectomy. No complaints of back pains during this admission. (5) Hypokalemia Is this a current diagnosis for this admission?: Yes Plan: 05/06/2018-patient came in with potassium of 3.3 is getting K rider and repeat potassium this morning is 2.8 patient is in IV K rider. Hypokalemia most likely secondary to severe diarrhea. - Time Time Spent with patient: 15-24 minutes Medications reviewed and adjusted accordingly: Yes Anticipated discharge: Home
[2018-05-06 13:19] LABS: ALANINE AMINOTRANSFERASE 43 U/L (21-72); ALBUMIN 2.9 g/dL (3.5-5.0); ALKALINE PHOSPHATASE 74 U/L (38-126); ASPARTATE AMINO TRANSFERASE 37 U/L (17-59); BILIRUBIN,DIRECT 0.2 mg/dL (0.0-0.4); BILIRUBIN,TOTAL 0.6 mg/dL (0.2-1.3); TOTAL PROTEIN 5.4 g/dL (6.3-8.2)
--- NOTE | 2018-05-06 13:56 | RADIOLOGY REPORT (SQ) ---
EXAM DESCRIPTION: CT ABD/PELVIS NO ORAL OR IV COMPLETED DATE/TIME: 05/06/2018 1:38 pm REASON FOR STUDY: ascites COMPARISON: None. TECHNIQUE: CT scan of the abdomen and pelvis performed without intravenous or oral contrast. Images reviewed with lung, soft tissue, and bone windows. Reconstructed coronal and sagittal MPR images revi ewed. All images stored on PACS. All CT scanners at this facility use dose modulation, iterative reconstruction, and/or weight based d osing when appropriate to reduce radiation dose to as low as reasonably achievable (ALARA). [facility]: Dose Right [facility]: CareDose [facility]: Dose Right [facility]: Teradose 4D [facility]: Propeller RADIATION DOSE: CT Rad equipment meets quality standard of care and radiation dose reduction techniq ues were employed. CTDIvol: 10.9 mGy. DLP: 665 mGy-cm.mGy. LIMITATIONS: None. FINDINGS: LOWER CHEST: Cardiomegaly. No acute findings. NON-CONTRASTED LIVER, SPLEEN, ADRENALS: Evaluation limited by lack of IV contrast. No identified sign ificant masses. PANCREAS: No masses. No peripancreatic inflammatory changes. GALLBLADDER: No identified stones by CT criteria. No inflammatory changes to suggest cholecystitis. RIGHT KIDNEY AND URETER: No suspicious masses. Assessment limited by lack of IV contrast. No signif icant calcifications. No hydronephrosis or hydroureter. LEFT KIDNEY AND URETER: No suspicious masses. Assessment limited by lack of IV contrast. No signifi cant calcifications. No hydronephrosis or hydroureter. AORTA AND RETROPERITONEUM: No aneurysm. No retroperitoneal masses or adenopathy. BOWEL AND PERITONEAL CAVITY: Sigmoid diverticulosis. No obvious masses or inflammatory changes. No f ree fluid. APPENDIX: Normal. PELVIS, BLADDER, AND ABDOMINAL WALL:Symmetric enlarged prostate. BONES: Nothing acute. Hemangioma L1. OTHER: No other significant finding. IMPRESSION: Diverticulosis. No acute findings. COMMENT: Quality ID # [id number]: Final reports with documentation of one or more dose reduction techniques (e.g., Automated exposure control, adjustment of the mA and/or kV according to patient size, use of iterative reconstruction technique) TECHNICAL DOCUMENTATION: JOB ID: [id number] [employer]- All Rights Reserved Reading location - IP/workstation name: [email or web address]
[2018-05-06] MEDS: LOSARTAN POTASSIUM 50 MG TABLET PO SCH (14:39)
[2018-05-06] MEDS: LEVALBUTEROL HCL NEB 1.25 MG/3 ML AMPUL NEB PRN (16:57)
[2018-05-06] MEDS: GUAIFENESIN 600 MG TABLET.SA PO SCH (21:46)
[2018-05-07] MEDS: VANCOMYCIN HCL INJ 500 MG VIAL PO SCH ×5 (05:44→23:22)
[2018-05-07] MEDS: LEVOTHYROXINE SODIUM 0.15 MG TABLET PO SCH (05:44)
[2018-05-07] MEDS: PROPRANOLOL HCL 20 MG TABLET PO SCH ×4 (05:46→23:21)
[2018-05-07] MEDS ORDERED: LEVOTHYROXINE SODIUM 0.15 MG TABLET PO SCH (06:00)
[2018-05-07 06:57] LABS: ABSOLUTE EOSINOPHILS # (AUTO) 0.1 10^3/uL (0.0-0.6); ABSOLUTE LYMPHOCYTES (AUTO) 0.7 10^3/uL (0.5-4.7); ABSOLUTE MONOCYTES (AUTO) 0.8 10^3/uL (0.1-1.4); ABSOLUTE NEUT (AUTO) 3.8 10^3/uL (1.7-8.2); BASOPHILS % (AUTO) 0.2 % (0-2); EOSINOPHILS % (AUTO) 1.4 % (0-6); HEMATOCRIT 36.3 % (37.9-51.0); HEMOGLOBIN 12.6 g/dL (13.5-17.0); LYMPHOCYTES % (AUTO) 13.1 % (13-45); MEAN CORPUSCULAR HEMOGLOBIN 32.1 pg (27.0-33.4); MEAN CORPUSCULAR HGB CONC 34.6 g/dL (32.0-36.0); MEAN CORPUSCULAR VOLUME 93 fl (80-97); MONOCYTES % (AUTO) 15.6 % (3-13); PLATELET COUNT 178 10^3/uL (150-450); RED BLOOD COUNT 3.91 10^6/uL (4.35-5.55); RED CELL DISTRIBUTION WIDTH 13.6 % (11.5-14.0); SEGMENTED NEUTROPHILS % (AUTO) 69.7 % (42-78); TOTAL CELLS COUNTED % (AUTO) 100 %; WHITE BLOOD COUNT 5.4 10^3/uL (4.0-10.5)
[2018-05-07 07:23] LABS: ALANINE AMINOTRANSFERASE 38 U/L (21-72); ALBUMIN 3.1 g/dL (3.5-5.0); ALKALINE PHOSPHATASE 77 U/L (38-126); ANION GAP 6 (5-19); ASPARTATE AMINO TRANSFERASE 37 U/L (17-59); BILIRUBIN,DIRECT 0.2 mg/dL (0.0-0.4); BILIRUBIN,TOTAL 0.6 mg/dL (0.2-1.3); BLOOD UREA NITROGEN 11 mg/dL (7-20); CALCIUM 7.8 mg/dL (8.4-10.2); CARBON DIOXIDE 30 mmol/L (22-30); CHLORIDE 103 mmol/L (98-107); GLUCOSE 91 mg/dL (75-110); SODIUM 138.7 mmol/L (137-145); TOTAL PROTEIN 5.6 g/dL (6.3-8.2)
[2018-05-07] MEDS: CITALOPRAM HYDROBROMIDE 20 MG TABLET PO SCH (08:59)
[2018-05-07] MEDS: ENOXAPARIN SODIUM INJ 40 MG/0.4 ML DISP.SYRIN SUBCUT SCH (09:02)
[2018-05-07] MEDS: LOSARTAN POTASSIUM 50 MG TABLET PO SCH (09:02)
[2018-05-07] MEDS: FAMOTIDINE INJ/PF 20 MG/2 ML SDV IV SCH ×2 (09:03→23:21)
[2018-05-07] MEDS: GUAIFENESIN 600 MG TABLET.SA PO SCH ×2 (09:03→23:21)
[2018-05-07] MEDS: AMLODIPINE BESYLATE 10 MG TABLET PO SCH (09:03)
[2018-05-07] MEDS ORDERED: FINASTERIDE 5 MG TABLET PO SCH (10:00)
[2018-05-07] MEDS ORDERED: AMLODIPINE BESYLATE 10 MG TABLET PO SCH (10:00)
[2018-05-07] MEDS ORDERED: (PENDING PHARMACY ID) (Irbesartan [Avapro] 300 MG) PO SCH (10:00)
[2018-05-07] MEDS ORDERED: (PENDING PHARMACY ID) (Citalopram Hydrobromide [Celexa 40 Mg Tablet] 40 MG) PO SCH (10:00)
[2018-05-07] MEDS ORDERED: (PENDING PHARMACY ID) (Ubidecarenone [Co Q-10] 100 MG) PO SCH (10:00)
[2018-05-07] MEDS: PRIMIDONE 250 MG TABLET PO SCH ×2 (10:36→23:22)
[2018-05-07] MEDS: LEVALBUTEROL HCL NEB 1.25 MG/3 ML AMPUL NEB PRN (12:01)
[2018-05-07] MEDS: FINASTERIDE 5 MG TABLET PO SCH (13:26)
[2018-05-07] MEDS: POTASSI CL 20 MEQ/50 ML RIDER 20 MEQ/50 ML RTUPB IV SCH ×2 (13:28→15:29)
--- NOTE | 2018-05-07 15:22 | PDOC PROGRESS REPORT ---
Subjective Progress Note for:: 05/07/18 Subjective:: 87 year old male with history of hypertension, depression, came to the emergency room with explosive diarrhea for the last 6 days. Prior to this patient was started on p.o. clindamycin for her dental abscess. No fever no nausea no vomiting's reported. Family told me patient has a low-grade fever 99.4, 99.6 like that. Patient is also complaining of increasing bloating sensation in the abdomen. No other complaints. No blood in the stool. Stool positive for C. difficile in the ER. Patient was on contact isolation. medical consult was called for further management. 05/06/2018-no acute events in the last 24 hours. Patient is afebrile. Potassium is dropped to 2.8 this morning we going to give IV K rider. Patient says he has a 2-3 loose bowel movements last night when it is semi-formed. Family said he has chest congestion and he is choking and coughing. The requested Xopenex nebulizations and Mucinex and those orders are placed. Patient is on contact isolation. 05/07/2018-patient is continued to have diarrhea. He is on p.o. vancomycin 125 mg every 6 hours for C. difficile. He is on contact isolation. Potassium is 3.0 which is going to be supplemented. Reason For Visit: DIARRHEA Physical Exam Vital Signs: Temp Pulse Resp BP Pulse Ox 98.2 F 56 L 18 156/74 H 94 05/07/18 04:09 05/07/18 14:00 05/07/18 12:09 05/07/18 04:09 05/07/18 12:09 Intake & Output 05/06/18 05/07/18 05/08/18 06:59 06:59 06:59 Intake Total 1400 Balance 1400 Weight 88.3 kg 89.3 kg General appearance: PRESENT: no acute distress Head exam: PRESENT: atraumatic Eye exam: PRESENT: PERRLA Mouth exam: PRESENT: moist, tongue midline Neck exam: ABSENT: carotid bruit, JVD, lymphadenopathy, thyromegaly Respiratory exam: PRESENT: clear to auscultation germaine. ABSENT: rales, rhonchi, wheezes Cardiovascular exam: PRESENT: RRR. ABSENT: diastolic murmur, rubs, systolic murmur GI/Abdominal exam: PRESENT: normal bowel sounds, soft. ABSENT: distended, guarding, mass, organolmegaly, rebound, tenderness Neurological exam: PRESENT: alert, awake, oriented to person, oriented to place, oriented to time, oriented to situation, CN II-XII grossly intact. ABSENT: motor sensory deficit Psychiatric exam: PRESENT: appropriate affect, normal mood. ABSENT: homicidal ideation, suicidal ideation Results Laboratory Results: 05/07/18 06:35 05/07/18 06:35 05/07/18 05/07/18 06:35 06:35 WBC 5.4 RBC 3.91 L Hgb 12.6 L Hct 36.3 L MCV 93 MCH 32.1 MCHC 34.6 RDW 13.6 Plt Count 178 Seg Neutrophils % 69.7 Lymphocytes % 13.1 Monocytes % 15.6 H Eosinophils % 1.4 Basophils % 0.2 Absolute Neutrophils 3.8 Absolute Lymphocytes 0.7 Absolute Monocytes 0.8 Absolute Eosinophils 0.1 Absolute Basophils 0.0 Sodium 138.7 Potassium 3.0 L* Chloride 103 Carbon Dioxide 30 Anion Gap 6 BUN 11 Creatinine 0.61 Est GFR ( Amer) > 60 Est GFR (Non-Af Amer) > 60 Glucose 91 Calcium 7.8 L Magnesium 1.9 Total Bilirubin 0.6 AST 37 ALT 38 Alkaline Phosphatase 77 Total Protein 5.6 L Albumin 3.1 L 05/05/18 14:29 Stool - Stool - Final 05/05/18 14:29 Stool - Stool Stool Culture - Final NO SALMONELLA, SHIGELLA, CAMPYLOBACTER, OR E.COLI 0157 RECOVERED. NEGATIVE FOR SHIGA TOXINS 1&2. Impressions: Abdomen X-Ray 05/05/18 00:00 IMPRESSION: No evidence for obstruction. Question ascites. Chest X-Ray 05/05/18 12:30 IMPRESSION: NO ACUTE RADIOGRAPHIC FINDING IN THE CHEST. Abdomen/Pelvis CT 05/06/18 00:00 IMPRESSION: Diverticulosis. No acute findings. Assessment & Plan - Diagnosis (1) C. difficile diarrhea Is this a current diagnosis for this admission?: Yes Plan: 05/05/2018-patient was admitted with explosive diarrhea after start taking clindamycin for dental abscess. This stool for C. difficile is positive in the ER. Plan is to admit the patient in telemetry. Started on IV fluids normal saline at 75 cc/h.'s to stop his home antihypertensive medications. Started on a p.o. vancomycin 125 mg every 6 hours. Patient was placed on contact isolation. Acute abdominal series was requested. Blood cultures urine cultures were requested. GI prophylaxis and DVT prophylaxis were initiated. Plan is to do the daily labs to monitor the electrolytes. Started on IV Zofran 4 mg every 6 hours for nausea. 05/06/2018-patient was admitted with C. difficile diarrhea. He is on p.o. vancomycin 125 mg every 6 hours. On contact isolation. He had a to 3 loose bowel movements last night and 1 semisolid stool. Patient states he is feeling much better today. Plan is to continue the present management. 05/07/2018-patient has C. difficile diarrhea and contact isolation he is on p.o. vancomycin 125 mg every 6 hours plan is to continue the present management. Receiving IV fluids. (2) Hypotension Is this a current diagnosis for this admission?: Yes Plan: 05/05/2018-patient blood pressure is 100/70 in the ER. Plan is to hold his home antihypertensive medications, started on IV fluids normal saline at 75 cc/h. To check the vitals every shift. 05/06/2018-patient is admitted with hypotension 161/79. His blood pressures are restarted again except for hydrochlorothiazide. I am going to discontinue his IV fluids. Hypotension is resolved. 05/07/2018-patient's blood pressure today is 156/74. Hypotension is resolved. Presently is on losartan 100 mg p.o. daily, amlodipine 10 mg p.o. daily, metoprolol 20 mg p.o. every 8 hours. (3) Weakness Is this a current diagnosis for this admission?: Yes Plan: 05/05/2018-patient is complaining of severe weakness secondary to diarrhea. Bed rest was advised and fall precautions are requested. 05/06/2018-patient came in with severe weakness possibly secondary to severe diarrhea. Patient said his weakness is improving. 05/07/2018 weakness most likely secondary to severe diarrhea causing hypotension. Weakness is resolving. (4) Spinal stenosis Is this a current diagnosis for this admission?: Yes (5) Hypokalemia Is this a current diagnosis for this admission?: Yes Plan: 05/06/2018-patient came in with potassium of 3.3 is getting K rider and repeat potassium this morning is 2.8 patient is in IV K rider. Hypokalemia most likely secondary to severe diarrhea. 05/07/2018-patient's potassium is 3.0 he is getting K rider IV hypokalemia most likely secondary to C. difficile diarrhea. Plan is to recheck his labs tomorrow. - Time Time Spent with patient: 15-24 minutes Medications reviewed and adjusted accordingly: Yes Anticipated discharge: Home
[2018-05-08] MEDS: VANCOMYCIN HCL INJ 500 MG VIAL PO SCH ×3 (05:58→17:53)
[2018-05-08] MEDS: LEVOTHYROXINE SODIUM 0.15 MG TABLET PO SCH (05:58)
[2018-05-08] MEDS: PROPRANOLOL HCL 20 MG TABLET PO SCH ×2 (05:59→13:10)
[2018-05-08] MEDS ORDERED: MORPHINE SULFATE 10 MG/ML INJ IV PRN (08:05)
[2018-05-08] MEDS: CITALOPRAM HYDROBROMIDE 20 MG TABLET PO SCH (08:44)
[2018-05-08] MEDS: FINASTERIDE 5 MG TABLET PO SCH (08:45)
[2018-05-08] MEDS: AMLODIPINE BESYLATE 10 MG TABLET PO SCH (08:45)
[2018-05-08] MEDS: GUAIFENESIN 600 MG TABLET.SA PO SCH (08:45)
[2018-05-08] MEDS: ENOXAPARIN SODIUM INJ 40 MG/0.4 ML DISP.SYRIN SUBCUT SCH (08:45)
[2018-05-08] MEDS: LOSARTAN POTASSIUM 50 MG TABLET PO SCH (08:45)
[2018-05-08 10:03] LABS: ABSOLUTE EOSINOPHILS # (AUTO) 0.1 10^3/uL (0.0-0.6); ABSOLUTE LYMPHOCYTES (AUTO) 0.7 10^3/uL (0.5-4.7); ABSOLUTE MONOCYTES (AUTO) 0.7 10^3/uL (0.1-1.4); ABSOLUTE NEUT (AUTO) 4.3 10^3/uL (1.7-8.2); BASOPHILS % (AUTO) 0.5 % (0-2); EOSINOPHILS % (AUTO) 1.1 % (0-6); HEMATOCRIT 40.7 % (37.9-51.0); HEMOGLOBIN 14.5 g/dL (13.5-17.0); LYMPHOCYTES % (AUTO) 12.8 % (13-45); MEAN CORPUSCULAR HEMOGLOBIN 32.6 pg (27.0-33.4); MEAN CORPUSCULAR HGB CONC 35.8 g/dL (32.0-36.0); MEAN CORPUSCULAR VOLUME 91 fl (80-97); MONOCYTES % (AUTO) 12.4 % (3-13); PLATELET COUNT 260 10^3/uL (150-450); RED BLOOD COUNT 4.46 10^6/uL (4.35-5.55); RED CELL DISTRIBUTION WIDTH 13.7 % (11.5-14.0); SEGMENTED NEUTROPHILS % (AUTO) 73.2 % (42-78); TOTAL CELLS COUNTED % (AUTO) 100 %; WHITE BLOOD COUNT 5.8 10^3/uL (4.0-10.5)
[2018-05-08 10:30] LABS: ALANINE AMINOTRANSFERASE 47 U/L (21-72); ALBUMIN 3.7 g/dL (3.5-5.0); ALKALINE PHOSPHATASE 98 U/L (38-126); ANION GAP 10 (5-19); ASPARTATE AMINO TRANSFERASE 51 U/L (17-59); BILIRUBIN,DIRECT 0.3 mg/dL (0.0-0.4); BILIRUBIN,TOTAL 0.8 mg/dL (0.2-1.3); BLOOD UREA NITROGEN 7 mg/dL (7-20); CALCIUM 8.2 mg/dL (8.4-10.2); CARBON DIOXIDE 29 mmol/L (22-30); CHLORIDE 100 mmol/L (98-107); GLUCOSE 103 mg/dL (75-110); POTASSIUM 3.3 mmol/L (3.6-5.0); SODIUM 138.9 mmol/L (137-145); TOTAL PROTEIN 6.5 g/dL (6.3-8.2)
[2018-05-08] MEDS ORDERED: POTASSI CL 20 MEQ/50 ML RIDER 20 MEQ/50 ML RTUPB IV SCH (10:45)
--- NOTE | 2018-05-08 11:03 | PDOC PROGRESS REPORT ---
Subjective Progress Note for:: 05/08/18 Subjective:: 87 year old male with history of hypertension, depression, came to the emergency room with explosive diarrhea for the last 6 days. Prior to this patient was started on p.o. clindamycin for her dental abscess. No fever no nausea no vomiting's reported. Family told me patient has a low-grade fever 99.4, 99.6 like that. Patient is also complaining of increasing bloating sensation in the abdomen. No other complaints. No blood in the stool. Stool positive for C. difficile in the ER. Patient was on contact isolation. medical consult was called for further management. 05/06/2018-no acute events in the last 24 hours. Patient is afebrile. Potassium is dropped to 2.8 this morning we going to give IV K rider. Patient says he has a 2-3 loose bowel movements last night when it is semi-formed. Family said he has chest congestion and he is choking and coughing. The requested Xopenex nebulizations and Mucinex and those orders are placed. Patient is on contact isolation. 05/07/2018-patient is continued to have diarrhea. He is on p.o. vancomycin 125 mg every 6 hours for C. difficile. He is on contact isolation. Potassium is 3.0 which is going to be supplemented. 05/08/2018-diarrhea is resolving. Patient found to have an atrial fibrillation. Asymptomatic. EKG confirmed that patient is in atrial fibrillation. Started on Cardizem 30 mg p.o. every 8 hours, requested echocardiogram, cardiology consult was requested. Repeat EKG was requested. She denies any chest pains. Reason For Visit: DIARRHEA Physical Exam Vital Signs: Temp Pulse Resp BP Pulse Ox 98.7 F 109 H 17 149/68 H 97 05/07/18 22:00 05/08/18 07:00 05/07/18 22:00 05/07/18 22:00 05/07/18 22:00 Intake & Output 05/07/18 05/08/18 05/09/18 06:59 06:59 06:59 Intake Total 1400 854 Balance 1400 854 Weight 89.3 kg 89.5 kg General appearance: PRESENT: no acute distress Head exam: PRESENT: atraumatic Eye exam: PRESENT: PERRLA Neck exam: ABSENT: carotid bruit, JVD, lymphadenopathy, thyromegaly Respiratory exam: PRESENT: clear to auscultation germaine. ABSENT: rales, rhonchi, wheezes Cardiovascular exam: PRESENT: RRR. ABSENT: diastolic murmur, rubs, systolic murmur Pulses: PRESENT: normal dorsalis pedis pul Extremities exam: PRESENT: full ROM. ABSENT: calf tenderness, clubbing, pedal edema Neurological exam: PRESENT: alert, awake, oriented to person, oriented to place, oriented to time, oriented to situation, CN II-XII grossly intact. ABSENT: motor sensory deficit Psychiatric exam: PRESENT: appropriate affect, normal mood. ABSENT: homicidal ideation, suicidal ideation Results Laboratory Results: 05/08/18 09:33 05/08/18 09:33 05/08/18 05/08/18 09:33 09:33 WBC 5.8 RBC 4.46 Hgb 14.5 Hct 40.7 MCV 91 MCH 32.6 MCHC 35.8 RDW 13.7 Plt Count 260 Seg Neutrophils % 73.2 Lymphocytes % 12.8 L Monocytes % 12.4 Eosinophils % 1.1 Basophils % 0.5 Absolute Neutrophils 4.3 Absolute Lymphocytes 0.7 Absolute Monocytes 0.7 Absolute Eosinophils 0.1 Absolute Basophils 0.0 Sodium 138.9 Potassium 3.3 L Chloride 100 Carbon Dioxide 29 Anion Gap 10 BUN 7 Creatinine 0.52 Est GFR ( Amer) > 60 Est GFR (Non-Af Amer) > 60 Glucose 103 Calcium 8.2 L Magnesium 1.9 Total Bilirubin 0.8 AST 51 ALT 47 Alkaline Phosphatase 98 Total Protein 6.5 Albumin 3.7 05/05/18 14:29 Stool - Stool - Final 05/05/18 14:29 Stool - Stool Stool Culture - Final NO SALMONELLA, SHIGELLA, CAMPYLOBACTER, OR E.COLI 0157 RECOVERED. NEGATIVE FOR SHIGA TOXINS 1&2. Impressions: Abdomen X-Ray 05/05/18 00:00 IMPRESSION: No evidence for obstruction. Question ascites. Chest X-Ray 05/05/18 12:30 IMPRESSION: NO ACUTE RADIOGRAPHIC FINDING IN THE CHEST. Abdomen/Pelvis CT 05/06/18 00:00 IMPRESSION: Diverticulosis. No acute findings. Assessment & Plan - Diagnosis (1) C. difficile diarrhea Is this a current diagnosis for this admission?: Yes Plan: 05/05/2018-patient was admitted with explosive diarrhea after start taking clindamycin for dental abscess. This stool for C. difficile is positive in the ER. Plan is to admit the patient in telemetry. Started on IV fluids normal saline at 75 cc/h.'s to stop his home antihypertensive medications. Started on a p.o. vancomycin 125 mg every 6 hours. Patient was placed on contact isolation. Acute abdominal series was requested. Blood cultures urine cultures were requested. GI prophylaxis and DVT prophylaxis were initiated. Plan is to do the daily labs to monitor the electrolytes. Started on IV Zofran 4 mg every 6 hours for nausea. 05/06/2018-patient was admitted with C. difficile diarrhea. He is on p.o. vancomycin 125 mg every 6 hours. On contact isolation. He had a to 3 loose bowel movements last night and 1 semisolid stool. Patient states he is feeling much better today. Plan is to continue the present management. 05/07/2018-patient has C. difficile diarrhea and contact isolation he is on p.o. vancomycin 125 mg every 6 hours plan is to continue the present management. Receiving IV fluids. 05/08/2018-patient was admitted with the severe C. difficile diarrhea. Started p.o. vancomycin 125 mg every 6 hours. Blood cultures are negative so far. Plan is to continue the present management. Patient is off the IV fluids. Patient does not have any bowel movement in the last 12 hours. (2) Hypotension Is this a current diagnosis for this admission?: Yes Plan: 05/05/2018-patient blood pressure is 100/70 in the ER. Plan is to hold his home antihypertensive medications, started on IV fluids normal saline at 75 cc/h. To check the vitals every shift. 05/06/2018-patient is admitted with hypotension 161/79. His blood pressures are restarted again except for hydrochlorothiazide. I am going to discontinue his IV fluids. Hypotension is resolved. 05/07/2018-patient's blood pressure today is 156/74. Hypotension is resolved. Presently is on losartan 100 mg p.o. daily, amlodipine 10 mg p.o. daily, propranolol 20 mg p.o. every 8 hours. 05/08/2018-patient blood pressure today is 145/68. Hypotension is resolved. Present medications are losartan 100 mg p.o. daily, amlodipine 10 mg p.o. daily, propranolol 20 mg p.o. every 8 hours. Plan is to continue the present man agement. (3) Weakness Is this a current diagnosis for this admission?: Yes Plan: 05/05/2018-patient is complaining of severe weakness secondary to diarrhea. Bed rest was advised and fall precautions are requested. 05/06/2018-patient came in with severe weakness possibly secondary to severe diarrhea. Patient said his weakness is improving. 05/07/2018 weakness most likely secondary to severe diarrhea causing hypotension. Weakness is resolving. 05/08/2018 patient was admitted with severe weakness which was resolving. (4) Spinal stenosis Is this a current diagnosis for this admission?: Yes Plan: 05/05/2018-patient has a spinal stenosis status post laminectomy several years ago. No complaints of any back pains. 05/06/2018-patient has history of spinal stenosis status post laminectomy. No complaints of back pains during this admission. 05/08/2018 patient history of spinal stenosis status post laminectomy. No complaints of back pains during this admission. (5) Hypokalemia Is this a current diagnosis for this admission?: Yes Plan: 05/06/2018-patient came in with potassium of 3.3 is getting K rider and repeat potassium this morning is 2.8 patient is in IV K rider. Hypokalemia most likely secondary to severe diarrhea. 05/07/2018-patient's potassium is 3.0 he is getting K rider IV hypokalemia most likely secondary to C. difficile diarrhea. Plan is to recheck his labs tomorrow. 05/08/2018 repeat potassium levels today is 3.3 patient does not have any loose stools anymore hypokalemia is resolving started on potassium chloride 20 mg p.o. twice daily. - Time Time Spent with patient: 15-24 minutes Medications reviewed and adjusted accordingly: Yes Anticipated discharge: Home
[2018-05-08 11:49] LABS: APPEARANCE,URINE CLEAR; BILIRUBIN,URINE NEGATIVE (NEGATIVE); COLOR,URINE YELLOW; GLUCOSE, URINE NEGATIVE (NEGATIVE); KETONES,URINE TRACE mg/dL (NEGATIVE); LEUKOCYTE ESTERASE,URINE NEGATIVE (NEGATIVE); NITRITE,URINE NEGATIVE (NEGATIVE); PROTEIN,URINE NEGATIVE (NEGATIVE); URINE SPECIFIC GRAVITY 1.008; UROBILINOGEN,URINE NEGATIVE mg/dL (<2.0)
[2018-05-08] MEDS: FAMOTIDINE 20 MG TABLET PO SCH (13:10)
[2018-05-08] MEDS: DILTIAZEM HCL 30 MG TABLET PO SCH (13:10)
--- NOTE | 2018-05-08 13:13 | EKG REPORT ---
SEVERITY:- ABNORMAL ECG - ATRIAL FIBRILLATION LEFT ANTERIOR FASCICULAR BLOCK NONSPECIFIC REPOL ABNORMALITY, DIFFUSE LEADS : Confirmed by: Steven Zacarias MD 08-May-2018 13:11:51
--- NOTE | 2018-05-08 13:13 | EKG REPORT ---
SEVERITY:- ABNORMAL ECG - ATRIAL FIBRILLATION LEFT ANTERIOR FASCICULAR BLOCK NONSPECIFIC REPOL ABNORMALITY, DIFFUSE LEADS : Confirmed by: Steven Zacarias MD 08-May-2018 13:12:01
--- NOTE | 2018-05-08 19:31 | EKG REPORT ---
SEVERITY:- ABNORMAL ECG - ATRIAL FIBRILLATION LEFT ANTERIOR FASCICULAR BLOCK CONSIDER POSTERIOR INFARCT BORDERLINE PROLONGED QT INTERVAL : Confirmed by: Steven Zacarias MD 08-May-2018 19:30:44
[2018-05-08] MEDS ORDERED: POTASSIUM CHLORIDE 10 MEQ CAPSULE.ER PO SCH (22:00)
--- NOTE | 2018-05-08 22:29 | PDOC CONSULTATION ---
Consultation-Blank Consultation: CARDIOLOGY CONSULTATION by Dr. Celi Albarran on 05/08/2018.
[2018-05-09] MEDS: VANCOMYCIN HCL INJ 500 MG VIAL PO SCH ×5 (00:21→23:36)
[2018-05-09] MEDS: GUAIFENESIN 600 MG TABLET.SA PO SCH ×3 (00:21→23:37)
[2018-05-09] MEDS: PRIMIDONE 250 MG TABLET PO SCH ×2 (00:23→23:37)
[2018-05-09] MEDS: FAMOTIDINE 20 MG TABLET PO SCH ×3 (00:23→23:36)
[2018-05-09] MEDS: DILTIAZEM HCL 30 MG TABLET PO SCH ×2 (00:23→05:53)
[2018-05-09] MEDS: PROPRANOLOL HCL 20 MG TABLET PO SCH ×3 (00:24→15:04)
[2018-05-09] MEDS: LEVOTHYROXINE SODIUM 0.15 MG TABLET PO SCH (05:52)
[2018-05-09 08:15] LABS: ABSOLUTE EOSINOPHILS # (AUTO) 0.1 10^3/uL (0.0-0.6); ABSOLUTE MONOCYTES (AUTO) 0.8 10^3/uL (0.1-1.4); ABSOLUTE NEUT (AUTO) 4.1 10^3/uL (1.7-8.2); BASOPHILS % (AUTO) 0.4 % (0-2); HEMOGLOBIN 13.4 g/dL (13.5-17.0); LYMPHOCYTES % (AUTO) 17.1 % (13-45); MEAN CORPUSCULAR HEMOGLOBIN 32.3 pg (27.0-33.4); MEAN CORPUSCULAR HGB CONC 35.4 g/dL (32.0-36.0); MEAN CORPUSCULAR VOLUME 91 fl (80-97); MONOCYTES % (AUTO) 12.7 % (3-13); PLATELET COUNT 270 10^3/uL (150-450); RED BLOOD COUNT 4.16 10^6/uL (4.35-5.55); RED CELL DISTRIBUTION WIDTH 13.5 % (11.5-14.0); SEGMENTED NEUTROPHILS % (AUTO) 67.8 % (42-78); TOTAL CELLS COUNTED % (AUTO) 100 %
[2018-05-09 08:38] LABS: ALANINE AMINOTRANSFERASE 73 U/L (21-72); ALBUMIN 3.3 g/dL (3.5-5.0); ALKALINE PHOSPHATASE 85 U/L (38-126); ANION GAP 6 (5-19); ASPARTATE AMINO TRANSFERASE 71 U/L (17-59); BILIRUBIN,DIRECT 0.3 mg/dL (0.0-0.4); BILIRUBIN,TOTAL 0.6 mg/dL (0.2-1.3); BLOOD UREA NITROGEN 9 mg/dL (7-20); CALCIUM 8.3 mg/dL (8.4-10.2); CARBON DIOXIDE 32 mmol/L (22-30); CHLORIDE 102 mmol/L (98-107); GLUCOSE 89 mg/dL (75-110); POTASSIUM 3.6 mmol/L (3.6-5.0); SODIUM 140.1 mmol/L (137-145); TOTAL PROTEIN 6.2 g/dL (6.3-8.2)
[2018-05-09] MEDS: FINASTERIDE 5 MG TABLET PO SCH (09:43)
[2018-05-09] MEDS: AMLODIPINE BESYLATE 10 MG TABLET PO SCH (09:44)
[2018-05-09] MEDS: CITALOPRAM HYDROBROMIDE 20 MG TABLET PO SCH (09:44)
[2018-05-09] MEDS: LOSARTAN POTASSIUM 50 MG TABLET PO SCH (09:45)
[2018-05-09] MEDS: ENOXAPARIN SODIUM INJ 40 MG/0.4 ML DISP.SYRIN SUBCUT SCH (09:45)
--- NOTE | 2018-05-09 10:24 | PDOC PROGRESS REPORT ---
Subjective Progress Note for:: 05/09/18 Subjective:: 87 year old male with history of hypertension, depression, came to the emergency room with explosive diarrhea for the last 6 days. Prior to this patient was started on p.o. clindamycin for her dental abscess. No fever no nausea no vomiting's reported. Family told me patient has a low-grade fever 99.4, 99.6 like that. Patient is also complaining of increasing bloating sensation in the abdomen. No other complaints. No blood in the stool. Stool positive for C. difficile in the ER. Patient was on contact isolation. medical consult was called for further management. 05/06/2018-no acute events in the last 24 hours. Patient is afebrile. Potassium is dropped to 2.8 this morning we going to give IV K rider. Patient says he has a 2-3 loose bowel movements last night when it is semi-formed. Family said he has chest congestion and he is choking and coughing. The requested Xopenex nebulizations and Mucinex and those orders are placed. Patient is on contact isolation. 05/07/2018-patient is continued to have diarrhea. He is on p.o. vancomycin 125 mg every 6 hours for C. difficile. He is on contact isolation. Potassium is 3.0 which is going to be supplemented. 05/08/2018-diarrhea is resolving. Patient found to have an atrial fibrillation. Asymptomatic. EKG confirmed that patient is in atrial fibrillation. Started on Cardizem 30 mg p.o. every 8 hours, requested echocardiogram, cardiology consult was requested. Repeat EKG was requested. She denies any chest pains. 2018-patient have good bowel movement semisolid no more diarrhea. Patient's appetite is improved. Potassium levels are improved. Patient is afebrile. Found to be have atrial fibrillation, echocardiogram was done results are pending. The impression is atrial fibrillation may be secondary to hypokalemia. Potassium level is 3.6 today we going to repeat the EKG now. Patient is comfortably in the chair communicating well. Reason For Visit: DIARRHEA Physical Exam Vital Signs: Temp Pulse Resp BP Pulse Ox 98 F 60 18 140/76 H 98 05/09/18 08:00 05/09/18 08:00 05/09/18 08:00 05/09/18 08:00 05/09/18 08:00 Intake & Output 05/08/18 05/09/18 05/10/18 06:59 06:59 06:59 Intake Total 854 2110 Output Total 6 Balance 854 2104 Weight 89.5 kg 90.4 kg General appearance: PRESENT: no acute distress Head exam: PRESENT: atraumatic Eye exam: PRESENT: PERRLA Mouth exam: PRESENT: moist, tongue midline Neck exam: ABSENT: carotid bruit, JVD, lymphadenopathy, thyromegaly Respiratory exam: PRESENT: clear to auscultation germaine. ABSENT: rales, rhonchi, wheezes Cardiovascular exam: PRESENT: irregular rhythm GI/Abdominal exam: PRESENT: normal bowel sounds, soft. ABSENT: distended, guarding, mass, organolmegaly, rebound, tenderness Extremities exam: PRESENT: full ROM. ABSENT: calf tenderness, clubbing, pedal edema Neurological exam: PRESENT: alert, awake, oriented to person, oriented to place, oriented to time, oriented to situation, CN II-XII grossly intact. ABSENT: motor sensory deficit Psychiatric exam: PRESENT: appropriate affect, normal mood. ABSENT: homicidal ideation, suicidal ideation Results Laboratory Results: 05/09/18 07:45 05/09/18 07:45 05/08/18 05/08/18 05/08/18 09:33 09:33 11:30 WBC 5.8 RBC 4.46 Hgb 14.5 Hct 40.7 MCV 91 MCH 32.6 MCHC 35.8 RDW 13.7 Plt Count 260 Seg Neutrophils % 73.2 Lymphocytes % 12.8 L Monocytes % 12.4 Eosinophils % 1.1 Basophils % 0.5 Absolute Neutrophils 4.3 Absolute Lymphocytes 0.7 Absolute Monocytes 0.7 Absolute Eosinophils 0.1 Absolute Basophils 0.0 Sodium 138.9 Potassium 3.3 L Chloride 100 Carbon Dioxide 29 Anion Gap 10 BUN 7 Creatinine 0.52 Est GFR ( Amer) > 60 Est GFR (Non-Af Amer) > 60 Glucose 103 Calcium 8.2 L Magnesium 1.9 Total Bilirubin 0.8 AST 51 ALT 47 Alkaline Phosphatase 98 Total Protein 6.5 Albumin 3.7 TSH Urine Color YELLOW Urine Appearance CLEAR Urine pH 8.0 Ur Specific [place] 1.008 Urine Protein NEGATIVE Urine Glucose (UA) NEGATIVE Urine Ketones TRACE H Urine Blood SMALL H Urine Nitrite NEGATIVE Ur Leukocyte Esterase NEGATIVE Urine WBC (Auto) 1 Urine RBC (Auto) 3 02/23/19 02/23/19 02/23/19 07:45 07:45 07:45 WBC 6.0 RBC 4.16 L Hgb 13.4 L Hct 38.0 MCV 91 MCH 32.3 MCHC 35.4 RDW 13.5 Plt Count 270 Seg Neutrophils % 67.8 Lymphocytes % 17.1 Monocytes % 12.7 Eosinophils % 2.0 Basophils % 0.4 Absolute Neutrophils 4.1 Absolute Lymphocytes 1.0 Absolute Monocytes 0.8 Absolute Eosinophils 0.1 Absolute Basophils 0.0 Sodium 140.1 Potassium 3.6 Chloride 102 Carbon Dioxide 32 H Anion Gap 6 BUN 9 Creatinine 0.64 Est GFR ( Amer) > 60 Est GFR (Non-Af Amer) > 60 Glucose 89 Calcium 8.3 L Magnesium 1.9 Total Bilirubin 0.6 AST 71 H ALT 73 H Alkaline Phosphatase 85 Total Protein 6.2 L Albumin 3.3 L TSH 4.05 Urine Color Urine Appearance Urine pH Ur Specific [place] Urine Protein Urine Glucose (UA) Urine Ketones Urine Blood Urine Nitrite Ur Leukocyte Esterase Urine WBC (Auto) Urine RBC (Auto) Impressions: Abdomen X-Ray 05/05/18 00:00 IMPRESSION: No evidence for obstruction. Question ascites. Chest X-Ray 05/05/18 12:30 IMPRESSION: NO ACUTE RADIOGRAPHIC FINDING IN THE CHEST. Abdomen/Pelvis CT 05/06/18 00:00 IMPRESSION: Diverticulosis. No acute findings. Assessment & Plan - Diagnosis (1) C. difficile diarrhea Is this a current diagnosis for this admission?: Yes Plan: 05/05/2018-patient was admitted with explosive diarrhea after start taking clindamycin for dental abscess. This stool for C. difficile is positive in the ER. Plan is to admit the patient in telemetry. Started on IV fluids normal saline at 75 cc/h.'s to stop his home antihypertensive medications. Started on a p.o. vancomycin 125 mg every 6 hours. Patient was placed on contact isolation. Acute abdominal series was requested. Blood cultures urine cultures were requested. GI prophylaxis and DVT prophylaxis were initiated. Plan is to do the daily labs to monitor the electrolytes. Started on IV Zofran 4 mg every 6 hours for nausea. 05/06/2018-patient was admitted with C. difficile diarrhea. He is on p.o. vancomycin 125 mg every 6 hours. On contact isolation. He had a to 3 loose bowel movements last night and 1 semisolid stool. Patient states he is feeling much better today. Plan is to continue the present management. 05/07/2018-patient has C. difficile diarrhea and contact isolation he is on p.o. vancomycin 125 mg every 6 hours plan is to continue the present management. Receiving IV fluids. 05/08/2018-patient was admitted with the severe C. difficile diarrhea. Started p.o. vancomycin 125 mg every 6 hours. Blood cultures are negative so far. Plan is to continue the present management. Patient is off the IV fluids. Patient does not have any bowel movement in the last 12 hours. 05/09/2018-patient was admitted with C. difficile diarrhea on p.o. vancomycin 125 mg every 6 hours. Diarrhea is resolved. Patient is having the regular bowel movements. Afebrile. Is off the IV fluids and blood pressure is stable around 140/70. (2) Hypotension Is this a current diagnosis for this admission?: Yes Plan: 05/05/2018-patient blood pressure is 100/70 in the ER. Plan is to hold his home antihypertensive medications, started on IV fluids normal saline at 75 cc/h. To check the vitals every shift. 05/06/2018-patient is admitted with hypotension 161/79. His blood pressures are restarted again except for hydrochlorothiazide. I am going to discontinue his IV fluids. Hypotension is resolved. 05/07/2018-patient's blood pressure today is 156/74. Hypotension is resolved. Presently is on losartan 100 mg p.o. daily, amlodipine 10 mg p.o. daily, propranolol 20 mg p.o. every 8 hours. 05/08/2018-patient blood pressure today is 145/68. Hypotension is resolved. Present medications are losartan 100 mg p.o. daily, amlodipine 10 mg p.o. daily, propranolol 20 mg p.o. every 8 hours. Plan is to continue the present man agement. 05/09/2018-patient blood pressure today is 140/70. Hypotension is resolved. Patient is presently on losartan 100 mg p.o. daily, amlodipine 10 mg p.o. daily, propranolol 20 mg p.o. every 8 hours. He is also receiving Cardizem 30 mg p.o. every 8 hours. Heart rate is in the 60s. Atrial fibrillation may be secondary to hypokalemia. 3.6 plan to do the EKG now. (3) Weakness Is this a current diagnosis for this admission?: Yes Plan: 05/05/2018-patient is complaining of severe weakness secondary to diarrhea. Bed rest was advised and fall precautions are requested. 05/06/2018-patient came in with severe weakness possibly secondary to severe diarrhea. Patient said his weakness is improving. 05/07/2018 weakness most likely secondary to severe diarrhea causing hypotension. Weakness is resolving. 05/08/2018 patient was admitted with severe weakness which was resolving. 05/09/2018 patient was admitted with severe weakness secondary to diarrhea and weakness is resolving. (4) Spinal stenosis Is this a current diagnosis for this admission?: Yes Plan: 05/05/2018-patient has a spinal stenosis status post laminectomy several years ago. No complaints of any back pains. 05/06/2018-patient has history of spinal stenosis status post laminectomy. No complaints of back pains during this admission. 05/08/2018 patient history of spinal stenosis status post laminectomy. No complaints of back pains during this admission. 05/09/2018-patient history of spinal stenosis with back pains no complaints of pains today. (5) Hypokalemia Is this a current diagnosis for this admission?: Yes Plan: 05/06/2018-patient came in with potassium of 3.3 is getting K rider and repeat potassium this morning is 2.8 patient is in IV K rider. Hypokalemia most likely secondary to severe diarrhea. 05/07/2018-patient's potassium is 3.0 he is getting K rider IV hypokalemia most likely secondary to C. difficile diarrhea. Plan is to recheck his labs tomorrow. 05/08/2018 repeat potassium levels today is 3.3 patient does not have any loose stools anymore hypokalemia is resolving started on potassium chloride 20 mg p.o. twice daily. 05/09/2018-hypokalemia most likely secondary to severe diarrhea. Diarrhea resolved potassium level today is 3.6 hypokalemia is resolving. (6) Atrial fibrillation Is this a current diagnosis for this admission?: Yes Plan: 05/09/2018-patient has new onset atrial fibrillation. May be secondary to hy pokalemia. Potassium levels normalized today 3.6. Plan is to repeat the EKG today patient is presently on Cardizem 30 mg p.o. every 8 hours for rate control. Heart rate is 60. echocardiogram report is pending. - Time Time Spent with patient: 15-24 minutes Medications reviewed and adjusted accordingly: Yes Anticipated discharge: Home
[2018-05-09] MEDS: POTASSIUM CHLORIDE 10 MEQ CAPSULE.ER PO SCH ×2 (11:06→23:36)
--- NOTE | 2018-05-09 12:04 | XCELERA REPORT ---
[address] [address] Transthoracic Echocardiogram Report Name: LARA MULLINS Age: 87 yrs Gender: Male : 1930 Patient Status: Inpatient Patient Location: [address] [place] [address] Study Date: 05/08/2018 05:25 PM Height: 70 in Weight: 197 lb BSA: 2.1 m2 Procedure: A two-dimensional transthoracic echocardiogram with color flow and Doppler was performed. Study Quality: Poor. Images were not obtained from all of the standard acoustic windows due to the limited scope of the study. Reason For Study: atrial fib History: ATRIAL FIBRILLAION. Ordering Physician: JEN MORAN Performed By: Amanda Arevalo Interpretation Summary The left ventricle is normal in size. There is normal left ventricular wall thickness. No True apical 2 chamber views obtained.Hence cannot comment on the apical anterior , the basal anterior, the basal inferior and apical inferior sharpe.The mid anterior , the mid inferior and the rest of the LV sharpe contract normally. . LVEF is normal and is greater than 60% in the limited views. The right ventricle is not well visualized secondary to technical limitations The left atrial size is normal. There is no aortic valve stenosis There is a mild amount of aortic regurgitation There is no evidence of mitral valve prolapse. There is no vegetation seen on the mitral valve. There is no mitral valve stenosis. There is a trace to mild amount of mitral regurgitation There is no tricuspid stenosis. There is a trace amount of tricuspid regurgitation RVSP mildly elevated at 35 mm of Hg , with RA mean of 10. The pulmonic valve is not well visualized. There is no pericardial effusion. The aortic root is not well visualized but is probably normal size. MMode/2D Measurements & Calculations RVDd: 2.7 cm LVIDd: 5.4 cm FS: 33.4 % Ao root diam: 2.8 cm IVSd: 1.1 cm LVIDs: 3.6 cm EDV(Teich): 139.5 ml Ao root area: 6.4 cm2 LVPWd: 1.1 cm ESV(Teich): 53.5 ml LA dimension: 3.2 cm EF(Teich): 61.6 % Doppler Measurements & Calculations MV E max rohan: MV P1/2t max rohan: Ao V2 max: AI max rohan: 95.3 cm/sec 95.0 cm/sec 117.3 cm/sec 415.0 cm/sec MV P1/2t: 45.0 msec Ao max PG: AI max P.1 mmHg MVA(P1/2t): 4.9 cm2 5.5 mmHg AI dec slope: MV dec slope: 123.5 cm/sec2 AI P1/2t: 984.2 msec 618.6 cm/sec2 MV dec time: 0.20 sec LV V1 max PG: TV V2 max: PA V2 max: TR max rohan: 4.3 mmHg 72.7 cm/sec 84.4 cm/sec 247.6 cm/sec LV V1 max: TV max P.1 mmHg PA max PG: TR max P.5 mmHg 103.2 cm/sec 2.8 mmHg AV P1/2t-pr_phl: MV P1/2t-pr_phl: 988.4 msec 45.0 msec Left Ventricle The left ventricle is normal in size. There is normal left ventricular wall thickness. No True apical 2 chamber views obtained.Hence cannot comment on the apical anterior , the basal anterior, the basal inferior and apical inferior sharpe.The mid anterior , the mid inferior and the rest of the LV sharpe contract normally. . LVEF is normal and is greater than 60% in the limited views. LV diastolic function could not be adequately assessed due to atrial fibrilation. Right Ventricle The right ventricle is not well visualized secondary to technical limitations. Atria Right atrium not well visualized secondary to technical limitations. The left atrial size is normal. Mitral Valve There is no evidence of mitral valve prolapse. There is no vegetation seen on the mitral valve. There is no mitral valve stenosis. There is a trace to mild amount of mitral regurgitation. Aortic Valve There is no aortic valvular vegetation. There is no aortic valve stenosis. There is a mild amount of aortic regurgitation. Tricuspid Valve There is no tricuspid stenosis. There is a trace amount of tricuspid regurgitation. RVSP mildly elevated at 35 mm of Hg , with RA mean of 10. Pulmonic Valve The pulmonic valve is not well visualized. Great Vessels The aortic root is not well visualized but is probably normal size. Effusions There is no pericardial effusion. : JEN MORAN > Celi Jama
--- NOTE | 2018-05-09 13:15 | EKG REPORT ---
SEVERITY:- ABNORMAL ECG - SINUS ARRHYTHMIA, RATE 54-67 VENTRICULAR PREMATURE COMPLEX INCOMPLETE RBBB AND LAFB NONSPECIFIC T ABNORMALITIES, LATERAL LEADS PROLONGED QT INTERVAL : Confirmed by: Steven Zacarias MD 09-May-2018 13:14:53
[2018-05-09] MEDS ORDERED: HYDROCORTISONE ACETATE 25 MG SUPP.RECT PR PRN (13:48)
--- NOTE | 2018-05-09 19:34 | Progress Note ---
Provider Note Provider Note: CARDIOLOGY PROGRESS NOTE by Dr. Celi Jama on 05/09/2018. SUBJECTIVE: The patient now seems to be in atrial rhythm, and normal in atrial fibrillation. The P waves do not appear coming from the sinus node activation. The patient is hard of hearing. He has no further diarrhea. He has had one bout of abdominal pain prior to having a bowel movement. At present he has no abdominal pain. He denies any chest pain. There is no dizziness or syncope or near syncope. The patient does have gait problems. He is also very hard of hearing in the left ear. There is no TIA CVA symptoms. There is no ventricular arrhythmia seen on the monitor. PHYSICAL EXAMINATION: The patient appears slightly older than his stated age. He is in no acute distress. He. He is well-groomed. He is well-built Selected Entries 05/09/18 08:00 Temperature 98 F Temperature Oral Source Pulse Rate 60 Respiratory 18 Rate Blood Pressure 140/76 H [Left Upper Arm ] Blood Pressure 97 Mean [Left Upper Arm] Blood Pressure Sitting Position [Left Upper Arm] O2 Sat by Pulse 98 Oximetry Oxygen Delivery Room Air Method ( includes room air) HEAD: Atraumatic normocephalic. EYES: Pupils are equal regular round reactive to light accommodation. Extraocular movements are normal. There is no conjunctival pallor there is no scleral icterus. ENT is negative. NECK: Is supple there is no JVD. Carotids equal there is no bruit. There is no lymphadenopathy. There is no goiter. There is no accessory muscles of respiration in use. Trachea central. LUNGS: Is clear to auscultation percussion, without any rhonchi rales or wheezing. There is no chest wall tenderness on palpation. HEART: S1-S2 is heard. There is no S3 gallop. There is no S4 gallop. There is systolic murmur in the left sternal border and the apex there is no rub. ABDOMEN: Is soft and nontender THERE IS NO PARASPINAL MEGALY. BOWEL SOUNDS ARE WELL HEARD. THERE IS NO TENDER AREAS MASSES. Extremities: Femorals are well felt. There is no femoral bruits. Leg pulses well felt. There is no pedal edema. There is no cyanosis or clubbing. There is no DVT or cellulitis. There is no calf tenderness. Capillary refill is normal. IMPORT EXPORT COORDINATOR: The patient is conscious awake alert oriented x3 with no focal deficits. PSYCHIATRIC: The patient's of slow mentation. But his judgment and insight seem to be intact. 05/05/18 05/09/18 05/09/18 14:29 07:45 07:45 WBC 6.0 RBC 4.16 L Hgb 13.4 L Hct 38.0 MCV 91 MCH 32.3 MCHC 35.4 RDW 13.5 Plt Count 270 Seg Neutrophils % 67.8 Lymphocytes % 17.1 Sodium 140.1 Potassium 3.6 Chloride 102 Carbon Dioxide 32 H Anion Gap 6 BUN 9 Creatinine 0.64 Est GFR (Non-Af Amer) > 60 Glucose 89 Calcium 8.3 L Magnesium 1.9 Total Bilirubin 0.6 Direct Bilirubin 0.3 Neonat Total Bilirubin Not Reportable Neonat Direct Bilirubin Not Reportable Neonat Indirect Bili Not Reportable AST 71 H ALT 73 H Alkaline Phosphatase 85 Total Protein 6.2 L Albumin 3.3 L C. difficile Tox (PCR) POSITIVE 05/09/18 07:45 TSH 4.05 EKG: Shows atrial rhythm. Incomplete right bundle branch block pattern, and left hand anterior hemiblock pattern [IRBB and LAHB). Nonspecific T changes. Borderline prolonged QT interval. ECHOCARDIOGRAM: Is a poor quality study. No true 2 chamber apical views obtained. Hence cannot comment on the apical anterior, and the basal anterior, the basal inferior and and apical inferior sharpe. The mid inferior and the mid anterior and the rest of the LV sharpe contract normally. In the limited views the LV ejection fraction is normal at 60%. There is mild amount of aortic regurgitation. There is no aortic stenosis. There is trace to mild amount of mitral regurgitation. With no mitral valve stenosis or mitral valve prolapse. There is trace to moderate tricuspid regurgitation. Right ventricle systolic pressure is mildly elevated at 35 mmHg. There is no pericardial effusion. This has been discussed with the patient and the patient's and the patient's daughter. 1. Transient atrial fibrillation. 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 Note that the patient's rhythm now is atrial rhythm, and not of the activation pattern arising from the SA node. Discussed the option of anticoagulation with the patient and patient's family. His chads 2 Vascor is at least 3. They do not want the patient on any anticoagulation. They are aware of the risks. 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 Note that the patient is already on amlodipine. We will stop the patient's Cardizem. Also would like to taper off the patient's propranolol. 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 Also the patient is on primidone for this. 2. C. difficile diarrhea: At present seems to be much improved. 3. Hypokalemia: Resolved. Potassium is now normal. 4. Hypertension: Blood pressure well controlled. 5. Hypothyroidism: Continue replacement. TSH level was normal. 6. History of depression 7. 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 We will see if we can increase the patient primidone and stop the patient's Inderal. The patient and the do not know why they are on propranolol MEDICATIONS reviewed. Medication adjusted. Medical decision making is of high complexity at present. Discussed the echo findings and the patient's possible SA node and AV node disease with the patient's daughter with the request of the patient and patient's . All questions answered. We will follow the patient up in the office. Discussed with the hospitalist taking care of the patient, and management plans discussed with him. 40 minutes spent on this patient with more than 50% of time spent in direct patient care.
[2018-05-09] MEDS ORDERED: DILTIAZEM HCL 30 MG TABLET PO SCH (22:00)
[2018-05-09] MEDS ORDERED: PROPRANOLOL HCL 20 MG TABLET PO ONE (22:30)
[2018-05-10] MEDS: VANCOMYCIN HCL INJ 500 MG VIAL PO SCH ×3 (06:14→17:56)
[2018-05-10] MEDS: LEVOTHYROXINE SODIUM 0.15 MG TABLET PO SCH (06:14)
[2018-05-10 06:45] LABS: ABSOLUTE EOSINOPHILS # (AUTO) 0.1 10^3/uL (0.0-0.6); ABSOLUTE MONOCYTES (AUTO) 0.8 10^3/uL (0.1-1.4); ABSOLUTE NEUT (AUTO) 4.2 10^3/uL (1.7-8.2); BASOPHILS % (AUTO) 0.4 % (0-2); EOSINOPHILS % (AUTO) 1.8 % (0-6); HEMATOCRIT 39.2 % (37.9-51.0); HEMOGLOBIN 13.6 g/dL (13.5-17.0); LYMPHOCYTES % (AUTO) 16.6 % (13-45); MEAN CORPUSCULAR HEMOGLOBIN 32.1 pg (27.0-33.4); MEAN CORPUSCULAR HGB CONC 34.7 g/dL (32.0-36.0); MEAN CORPUSCULAR VOLUME 92 fl (80-97); MONOCYTES % (AUTO) 12.6 % (3-13); PLATELET COUNT 286 10^3/uL (150-450); RED BLOOD COUNT 4.24 10^6/uL (4.35-5.55); RED CELL DISTRIBUTION WIDTH 13.7 % (11.5-14.0); SEGMENTED NEUTROPHILS % (AUTO) 68.6 % (42-78); TOTAL CELLS COUNTED % (AUTO) 100 %; WHITE BLOOD COUNT 6.1 10^3/uL (4.0-10.5)
[2018-05-10 07:04] LABS: ALANINE AMINOTRANSFERASE 101 U/L (21-72); ALBUMIN 3.3 g/dL (3.5-5.0); ALKALINE PHOSPHATASE 92 U/L (38-126); ANION GAP 7 (5-19); ASPARTATE AMINO TRANSFERASE 80 U/L (17-59); BILIRUBIN,DIRECT 0.2 mg/dL (0.0-0.4); BILIRUBIN,TOTAL 0.5 mg/dL (0.2-1.3); BLOOD UREA NITROGEN 8 mg/dL (7-20); CALCIUM 8.4 mg/dL (8.4-10.2); CARBON DIOXIDE 32 mmol/L (22-30); CHLORIDE 101 mmol/L (98-107); GLUCOSE 85 mg/dL (75-110); SODIUM 139.9 mmol/L (137-145); TOTAL PROTEIN 6.1 g/dL (6.3-8.2)
[2018-05-10] MEDS: CITALOPRAM HYDROBROMIDE 20 MG TABLET PO SCH (09:35)
[2018-05-10] MEDS: AMLODIPINE BESYLATE 10 MG TABLET PO SCH (09:36)
[2018-05-10] MEDS: POTASSIUM CHLORIDE 10 MEQ CAPSULE.ER PO SCH ×2 (09:36→10:52)
[2018-05-10] MEDS: PROPRANOLOL HCL 20 MG TABLET PO SCH ×2 (09:36→21:26)
[2018-05-10] MEDS: LOSARTAN POTASSIUM 50 MG TABLET PO SCH (09:36)
[2018-05-10] MEDS: ENOXAPARIN SODIUM INJ 40 MG/0.4 ML DISP.SYRIN SUBCUT SCH (09:36)
[2018-05-10] MEDS: GUAIFENESIN 600 MG TABLET.SA PO SCH ×2 (09:36→21:26)
[2018-05-10] MEDS: FAMOTIDINE 20 MG TABLET PO SCH ×2 (09:37→21:25)
[2018-05-10] MEDS: FINASTERIDE 5 MG TABLET PO SCH (09:37)
--- NOTE | 2018-05-10 10:31 | PDOC PROGRESS REPORT ---
Subjective Progress Note for:: 05/10/18 Subjective:: 87 year old male with history of hypertension, depression, came to the emergency room with explosive diarrhea for the last 6 days. Prior to this patient was started on p.o. clindamycin for her dental abscess. No fever no nausea no vomiting's reported. Family told me patient has a low-grade fever 99.4, 99.6 like that. Patient is also complaining of increasing bloating sensation in the abdomen. No other complaints. No blood in the stool. Stool positive for C. difficile in the ER. Patient was on contact isolation. medical consult was called for further management. 05/06/2018-no acute events in the last 24 hours. Patient is afebrile. Potassium is dropped to 2.8 this morning we going to give IV K rider. Patient says he has a 2-3 loose bowel movements last night when it is semi-formed. Family said he has chest congestion and he is choking and coughing. The requested Xopenex nebulizations and Mucinex and those orders are placed. Patient is on contact isolation. 05/07/2018-patient is continued to have diarrhea. He is on p.o. vancomycin 125 mg every 6 hours for C. difficile. He is on contact isolation. Potassium is 3.0 which is going to be supplemented. 05/08/2018-diarrhea is resolving. Patient found to have an atrial fibrillation. Asymptomatic. EKG confirmed that patient is in atrial fibrillation. Started on Cardizem 30 mg p.o. every 8 hours, requested echocardiogram, cardiology consult was requested. Repeat EKG was requested. She denies any chest pains. 05/09/2018-patient have good bowel movement semisolid no more diarrhea. Patient's appetite is improved. Potassium levels are improved. Patient is afebrile. Found to be have atrial fibrillation, echocardiogram was done results are pending. The impression is atrial fibrillation may be secondary to hypokalemia. Potassium level is 3.6 today we going to repeat the EKG now. Patient is comfortably in the chair communicating well. 05/10/2018-patient has formed stools. Afebrile. On admission found to have C. difficile positive on p.o. vancomycin 125 mg every 6 hours. His blood pressure was a little bit concerned it is 165/89. Patient is asymptomatic. No acute e vents in the last 24 hours. Afebrile. Reason For Visit: DIARRHEA Physical Exam Vital Signs: Temp Pulse Resp BP Pulse Ox 98.1 F 73 20 169/85 H 98 05/10/18 07:59 05/10/18 07:59 05/10/18 07:59 05/10/18 07:59 05/10/18 07:59 Intake & Output 05/09/18 05/10/18 05/11/18 06:59 06:59 06:59 Intake Total 2110 3120 Output Total 6 550 Balance 2104 2570 Weight 90.4 kg 90.5 kg General appearance: PRESENT: no acute distress Head exam: PRESENT: atraumatic Eye exam: PRESENT: PERRLA Mouth exam: PRESENT: dry mucosa Neck exam: ABSENT: carotid bruit, JVD, lymphadenopathy, thyromegaly Respiratory exam: PRESENT: clear to auscultation germaine. ABSENT: rales, rhonchi, wheezes Cardiovascular exam: PRESENT: RRR. ABSENT: diastolic murmur, rubs, systolic murmur GI/Abdominal exam: PRESENT: normal bowel sounds, soft. ABSENT: distended, guarding, mass, organolmegaly, rebound, tenderness Extremities exam: PRESENT: full ROM. ABSENT: calf tenderness, clubbing, pedal edema Neurological exam: PRESENT: alert, awake, oriented to person, oriented to place, oriented to time, oriented to situation, CN II-XII grossly intact. ABSENT: m otor sensory deficit Psychiatric exam: PRESENT: appropriate affect, normal mood. ABSENT: homicidal ideation, suicidal ideation Results Laboratory Results: 05/10/18 06:09 05/10/18 06:09 05/10/18 05/10/18 06:09 06:09 WBC 6.1 RBC 4.24 L Hgb 13.6 Hct 39.2 MCV 92 MCH 32.1 MCHC 34.7 RDW 13.7 Plt Count 286 Seg Neutrophils % 68.6 Lymphocytes % 16.6 Monocytes % 12.6 Eosinophils % 1.8 Basophils % 0.4 Absolute Neutrophils 4.2 Absolute Lymphocytes 1.0 Absolute Monocytes 0.8 Absolute Eosinophils 0.1 Absolute Basophils 0.0 Sodium 139.9 Potassium 4.0 Chloride 101 Carbon Dioxide 32 H Anion Gap 7 BUN 8 Creatinine 0.63 Est GFR ( Amer) > 60 Est GFR (Non-Af Amer) > 60 Glucose 85 Calcium 8.4 Magnesium 1.9 Total Bilirubin 0.5 AST 80 H ALT 101 H Alkaline Phosphatase 92 Total Protein 6.1 L Albumin 3.3 L Impressions: Abdomen X-Ray 05/05/18 00:00 IMPRESSION: No evidence for obstruction. Question ascites. Chest X-Ray 05/05/18 12:30 IMPRESSION: NO ACUTE RADIOGRAPHIC FINDING IN THE CHEST. Abdomen/Pelvis CT 05/06/18 00:00 IMPRESSION: Diverticulosis. No acute findings. Assessment & Plan - Diagnosis (1) C. difficile diarrhea Is this a current diagnosis for this admission?: Yes Plan: 05/05/2018-patient was admitted with explosive diarrhea after start taking clindamycin for dental abscess. This stool for C. difficile is positive in the ER. Plan is to admit the patient in telemetry. Started on IV fluids normal saline at 75 cc/h.'s to stop his home antihypertensive medications. Started on a p.o. vancomycin 125 mg every 6 hours. Patient was placed on contact isolation. Acute abdominal series was requested. Blood cultures urine cultures were requested. GI prophylaxis and DVT prophylaxis were initiated. Plan is to do the daily labs to monitor the electrolytes. Started on IV Zofran 4 mg every 6 hours for nausea. 05/06/2018-patient was admitted with C. difficile diarrhea. He is on p.o. vancomycin 125 mg every 6 hours. On contact isolation. He had a to 3 loose bowel movements last night and 1 semisolid stool. Patient states he is feeling much better today. Plan is to continue the present management. 05/07/2018-patient has C. difficile diarrhea and contact isolation he is on p.o. vancomycin 125 mg every 6 hours plan is to continue the present management. Receiving IV fluids. 05/08/2018-patient was admitted with the severe C. difficile diarrhea. Started p.o. vancomycin 125 mg every 6 hours. Blood cultures are negative so far. Plan is to continue the present management. Patient is off the IV fluids. Patient does not have any bowel movement in the last 12 hours. 05/09/2018-patient was admitted with C. difficile diarrhea on p.o. vancomycin 125 mg every 6 hours. Diarrhea is resolved. Patient is having the regular bowel movements. Afebrile. Is off the IV fluids and blood pressure is stable around 140/70. 05/10/2018-patient is admitted for C. difficile diarrhea diarrhea was resolved. He is completed 6 days of vancomycin be going to give 1 more day of p.o. vancomycin and recheck his stool for C. difficile. Patient is afebrile. (2) Hypotension Is this a current diagnosis for this admission?: Yes Plan: 05/05/2018-patient blood pressure is 100/70 in the ER. Plan is to hold his home antihypertensive medications, started on IV fluids normal saline at 75 cc/h. To check the vitals every shift. 05/06/2018-patient is admitted with hypotension 161/79. His blood pressures are restarted again except for hydrochlorothiazide. I am going to discontinue his IV fluids. Hypotension is resolved. 05/07/2018-patient's blood pressure today is 156/74. Hypotension is resolved. Presently is on losartan 100 mg p.o. daily, amlodipine 10 mg p.o. daily, propranolol 20 mg p.o. every 8 hours. 05/08/2018-patient blood pressure today is 145/68. Hypotension is resolved. Present medications are losartan 100 mg p.o. daily, amlodipine 10 mg p.o. daily, propranolol 20 mg p.o. every 8 hours. Plan is to continue the present management. 05/09/2018-patient blood pressure today is 140/70. Hypotension is resolved. Patient is presently on losartan 100 mg p.o. daily, amlodipine 10 mg p.o. daily, propranolol 20 mg p.o. every 8 hours. He is also receiving Cardizem 30 mg p.o. every 8 hours. Heart rate is in the 60s. Atrial fibrillation may be secondary to hypokalemia. 3.6 plan to do the EKG now. 05/10/2018-patient came in with hypotension probably secondary to severe diarrhea. Presently his blood pressure is 169/85 on amlodipine 10 mg daily, losartan 100 mg p.o. daily, propranolol 20 mg p.o. twice a day. Low-salt diet was advised. To check his blood pressures every shift. (3) Weakness Is this a current diagnosis for this admission?: Yes Plan: 05/05/2018-patient is complaining of severe weakness secondary to diarrhea. Bed rest was advised and fall precautions are requested. 05/06/2018-patient came in with severe weakness possibly secondary to severe diarrhea. Patient said his weakness is improving. 05/07/2018 weakness most likely secondary to severe diarrhea causing hypotension. Weakness is resolving. 05/08/2018 patient was admitted with severe weakness which was resolving. 05/09/2018 patient was admitted with severe weakness secondary to diarrhea and weakness is resolving. 05/10/2018-patient was admitted with severe weakness secondary to diarrhea weakness results resolved. Diarrhea is resolved. (4) Spinal stenosis Is this a current diagnosis for this admission?: Yes Plan: 05/05/2018-patient has a spinal stenosis status post laminectomy several years ago. No complaints of any back pains. 05/06/2018-patient has history of spinal stenosis status post laminectomy. No complaints of back pains during this admission. 05/08/2018 patient history of spinal stenosis status post laminectomy. No complaints of back pains during this admission. 05/09/2018-patient history of spinal stenosis with back pains no complaints of pains today. 05/10/2018-patient has history of spinal stenosis with h/o chronic back pain denies any back pains today. (5) Hypokalemia Is this a current diagnosis for this admission?: Yes Plan: 05/06/2018-patient came in with potassium of 3.3 is getting K rider and repeat potassium this morning is 2.8 patient is in IV K rider. Hypokalemia most likely secondary to severe diarrhea. 05/07/2018-patient's potassium is 3.0 he is getting K rider IV hypokalemia most likely secondary to C. difficile diarrhea. Plan is to recheck his labs tomorrow. 05/08/2018 repeat potassium levels today is 3.3 patient does not have any loose stools anymore hypokalemia is resolving started on potassium chloride 20 mg p.o. twice daily. 05/09/2018-hypokalemia most likely secondary to severe diarrhea. Diarrhea res olved potassium level today is 3.6 hypokalemia is resolving. 05/10/2018-patient potassium level is 4.0 today hypokalemia is resolved. (6) Atrial fibrillation Is this a current diagnosis for this admission?: Yes Plan: 05/09/2018-patient has new onset atrial fibrillation. May be secondary to hypokalemia. Potassium levels normalized today 3.6. Plan is to repeat the EKG today patient is presently on Cardizem 30 mg p.o. every 8 hours for rate control. Heart rate is 60. echocardiogram report is pending. 05/10/2018-patient has new onset of atrial fibrillation most likely secondary to hypokalemia. Now patient is in sinus arrhythmia. Cardiogram shows EF of 60%. Unable to assess the diastolic function because of the atrial fibrillation. To start aspirin 325 mg p.o. daily. - Time Time Spent with patient: 15-24 minutes Anticipated discharge: Home
--- NOTE | 2018-05-10 20:05 | Progress Note ---
Provider Note Provider Note: CARDIOLOGY PROGRESS NOTE by Dr. Celi Albarran on 05/10/2018. SUBJECTIVE: The patient denies any chest pain or discomfort. There is no dizziness or near syncope syncope. The patient's gait is still unsteady. This is been a long-standing problem problem of many years. There is no TIA CVA symptoms. The patient has no chest pain or discomfort. There is no shortness of breath. There is no PND orthopnea or leg edema. He has no further diarrhea. He remains in sinus bradycardia with first-degree AV block. There is no ventricular arrhythmia seen on the monitor. PHYSICAL EXAMINATION: The patient is well-built and well-nourished. At present in no acute distress. Selected Entries 05/10/18 05/10/18 14:00 16:00 Temperature 97.8 F Temperature Oral Source Pulse Rate 62 56 L Respiratory 21 H Rate Blood Pressure 123/60 [Left Upper Arm ] Blood Pressure 81 Mean [Left Upper Arm] Blood Pressure Supine Position [Left Upper Arm] O2 Sat by Pulse 96 Oximetry Oxygen Delivery Room Air Method ( includes room air) HEAD: Atraumatic normocephalic. EYES: Pupils are equal regular round reactive to light accommodation. Extraocular movements are normal. There is no conjunctival pallor there is no scleral icterus. ENT is negative. NECK: Is s upple there is no JVD. Carotids equal there is no bruit. There is no lymphadenopathy. There is no goiter. There is no accessory muscles of respiration in use. Trachea central. LUNGS: Is clear to auscultation percussion, without any rhonchi rales or wheezing. There is no chest wall tenderness on palpation. HEART: S1-S2 is heard. There is no S3 gallop. There is no S4 gallop. There is systolic murmur in the left sternal border and the apex there is no rub. ABDOMEN: Is soft and nontender THERE IS NO PARASPINAL MEGALY. BOWEL SOUNDS ARE WELL HEARD. THERE IS NO TENDER AREAS MASSES. Ext remities: Femorals are well felt. There is no femoral bruits. Leg pulses well felt. There is no pedal edema. There is no cyanosis or clubbing. There is no DVT or cellulitis. There is no calf tenderness. Capillary refill is normal. SURGERY AID: The patient is conscious awake alert oriented x3 with no focal deficits. PSYCHIATRIC: The patient's of slow mentation. But his judgment and insight seem to be intact. 05/10/18 05/10/18 06:09 06:09 WBC 6.1 RBC 4.24 L Hgb 13.6 Hct 39.2 MCV 92 MCH 32.1 MCHC 34.7 RDW 13.7 Plt Count 286 Seg Neutrophils % 68.6 Lymphocytes % 16.6 Monocytes % 12.6 Eosinophils % 1.8 Sodium 139.9 Potassium 4.0 Chloride 101 Carbon Dioxide 32 H Anion Gap 7 BUN 8 Creatinine 0.63 Est GFR (Non-Af Amer) > 60 Glucose 85 Calcium 8.4 Magnesium 1.9 Total Bilirubin 0.5 Direct Bilirubin 0.2 Neonat Total Bilirubin Not Reportable Neonat Direct Bilirubin Not Reportable Neonat Indirect Bili Not Reportable AST 80 H ALT 101 H Alkaline Phosphatase 92 Total Protein 6.1 L Albumin 3.3 L IMPRESSION/RECOMMENDATION: 1. Transient atrial fibrillation. 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 Note that the patient's rhythm now is atrial rhythm, and not of the activation pattern arising from the SA node. Discussed the option of anticoagulation with the patient and patient's family. His chads 2 Vascor is at least 3. They do not want the patient on any anticoagulation. They are aware of the risks. 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 Note that the patient is already on amlodipine. We will stop the patient's Cardizem. Also I have decreased the patient's propranolol. 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 Also the patient is on primidone for this. Would recommend a 30-day event monitor as an outpatient. 2. C. difficile diarrhea: At present seems to be much improved. 3. Hypokalemia: Resolved. Potassium is now normal. 4. Hypertension: Blood pressure well controlled. 5. Hypothyroidism: Continue replacement. TSH level was normal. 6. History of depression 7. 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 We will see if we can increase the patient primidone and stop the patient's Inderal. The patient and the do not know why they are on propranolol MEDICATIONS reviewed. Medication adjusted. Medical decision making is of moderate complexity at present. Discussed the echo findings and the patient's possible SA node and AV node disease with the patient's daughter with the request of the patient and patient's . All questions answered. We discussed echo findings with the patient, the patient's and the patient's daughter. Note that the patient is relocating to [place]. I have discussed with the family that he probably needs to get a 30-day event monitor there.. Discussed with the hospitalist taking care of the patient, and stefani comer plans discussed with him. 40 minutes spent on this patient with more than 50% of time spent in direct patient care. Cardiac status is stable, and hence will sign off.
[2018-05-10] MEDS: PRIMIDONE 250 MG TABLET PO SCH (21:25)
[2018-05-11] MEDS: VANCOMYCIN HCL INJ 500 MG VIAL PO SCH ×3 (01:26→12:49)
[2018-05-11] MEDS: LEVOTHYROXINE SODIUM 0.15 MG TABLET PO SCH (06:04)
[2018-05-11 07:22] LABS: HEMATOCRIT 40.4 % (37.9-51.0); HEMOGLOBIN 14.2 g/dL (13.5-17.0); MEAN CORPUSCULAR HEMOGLOBIN 32.4 pg (27.0-33.4); MEAN CORPUSCULAR HGB CONC 35.2 g/dL (32.0-36.0); MEAN CORPUSCULAR VOLUME 92 fl (80-97); PLATELET COUNT 245 10^3/uL (150-450); RED BLOOD COUNT 4.39 10^6/uL (4.35-5.55); RED CELL DISTRIBUTION WIDTH 13.6 % (11.5-14.0); WHITE BLOOD COUNT 5.9 10^3/uL (4.0-10.5)
[2018-05-11 07:41] LABS: ABSOLUTE LYMPHOCYTES# (MANUAL) 1.2 10^3/uL (0.5-4.7); ABSOLUTE MONOCYTES # (MANUAL) 0.8 10^3/uL (0.1-1.4); ABSOLUTE NEUTROPHILS# (MANUAL) 3.7 10^3/uL (1.7-8.2); BAND NEUTROPHILS % (MANUAL) 1 % (3-5); BASOPHILS % (MANUAL) 1 % (0-2); EOSINOPHILS % (MANUAL) 2 % (0-6); LYMPHOCYTES % (MANUAL) 18 % (13-45); MONOCYTES % (MANUAL) 13 % (3-13); SEGMENTED NEUTROPHILS % (MAN) 62 % (42-78); TOTAL CELLS COUNTED 100
[2018-05-11 07:42] LABS: PLATELET COMMENT ADEQUATE; RBC MORPHOLOGY COMMENT NORMO-CYTIC/CHROMIC; TOXIC GRANULATION SLIGHT
[2018-05-11 07:44] LABS: ALANINE AMINOTRANSFERASE 79 U/L (21-72); ALBUMIN 3.5 g/dL (3.5-5.0); ALKALINE PHOSPHATASE 95 U/L (38-126); ANION GAP 6 (5-19); ASPARTATE AMINO TRANSFERASE 54 U/L (17-59); BILIRUBIN,DIRECT 0.3 mg/dL (0.0-0.4); BILIRUBIN,TOTAL 0.6 mg/dL (0.2-1.3); BLOOD UREA NITROGEN 9 mg/dL (7-20); CALCIUM 8.7 mg/dL (8.4-10.2); CARBON DIOXIDE 31 mmol/L (22-30); CHLORIDE 99 mmol/L (98-107); GLUCOSE 100 mg/dL (75-110); POTASSIUM 4.1 mmol/L (3.6-5.0); SODIUM 136.1 mmol/L (137-145); TOTAL PROTEIN 6.6 g/dL (6.3-8.2)
[2018-05-11] MEDS: CITALOPRAM HYDROBROMIDE 20 MG TABLET PO SCH (10:47)
[2018-05-11] MEDS: LOSARTAN POTASSIUM 50 MG TABLET PO SCH (10:47)
[2018-05-11] MEDS: HYDROCHLOROTHIAZIDE 12.5 MG TABLET PO SCH ×2 (10:47→22:34)
[2018-05-11] MEDS: ASPIRIN 325 MG TABLET PO SCH (10:47)
--- NOTE | 2018-05-11 10:47 | PDOC PROGRESS REPORT ---
Subjective Progress Note for:: 05/11/18 Subjective:: 87 year old male with history of hypertension, depression, came to the emergency room with explosive diarrhea for the last 6 days. Prior to this patient was started on p.o. clindamycin for her dental abscess. No fever no nausea no vomiting's reported. Family told me patient has a low-grade fever 99.4, 99.6 like that. Patient is also complaining of increasing bloating sensation in the abdomen. No other complaints. No blood in the stool. Stool positive for C. difficile in the ER. Patient was on contact isolation. medical consult was called for further management. 05/06/2018-no acute events in the last 24 hours. Patient is afebrile. Potassium is dropped to 2.8 this morning we going to give IV K rider. Patient says he has a 2-3 loose bowel movements last night when it is semi-formed. Family said he has chest congestion and he is choking and coughing. The requested Xopenex nebulizations and Mucinex and those orders are placed. Patient is on contact isolation. 05/07/2018-patient is continued to have diarrhea. He is on p.o. vancomycin 125 mg every 6 hours for C. difficile. He is on contact isolation. Potassium is 3.0 which is going to be supplemented. 05/08/2018-diarrhea is resolving. Patient found to have an atrial fibrillation. Asymptomatic. EKG confirmed that patient is in atrial fibrillation. Started on Cardizem 30 mg p.o. every 8 hours, requested echocardiogram, cardiology consult was requested. Repeat EKG was requested. She denies any chest pains. 05/09/2018-patient have good bowel movement semisolid no more diarrhea. Patient's appetite is improved. Potassium levels are improved. Patient is afebrile. Found to be have atrial fibrillation, echocardiogram was done results are pending. The impression is atrial fibrillation may be secondary to hypokalemia. Potassium level is 3.6 today we going to repeat the EKG now. Patient is comfortably in the chair communicating well. 05/10/2018-patient has formed stools. Afebrile. On admission found to have C. difficile positive on p.o. vancomycin 125 mg every 6 hours. His blood pressure was a little bit concerned it is 165/89. Patient is asymptomatic. No acute e vents in the last 24 hours. Afebrile. 05/11/2018-diarrhea is resolved. To get a stool sample today to recheck for C. difficile . Still on contact isolation. Still on p.o. vancomycin 125 mg every 6 hours. No acute events in the last 24 hours. Patient is afebrile. Blood pressure this morning is 175/99 plan is to start him on hydrochlorothiazide 25 mg p.o. daily. Reason For Visit: DIARRHEA Physical Exam Vital Signs: Temp Pulse Resp BP Pulse Ox 98.1 F 60 16 175/99 H 97 05/11/18 07:30 05/11/18 07:30 05/11/18 07:30 05/11/18 07:30 05/11/18 07:30 Intake & Output 05/10/18 05/11/18 05/12/18 06:59 06:59 06:59 Intake Total 3120 2730 Output Total 550 1200 Balance 2570 1530 Weight 90.5 kg 86.2 kg General appearance: PRESENT: no acute distress Head exam: PRESENT: atraumatic Eye exam: PRESENT: PERRLA Mouth exam: PRESENT: moist, tongue midline Neck exam: ABSENT: carotid bruit, JVD, lymphadenopathy, thyromegaly Respiratory exam: PRESENT: clear to auscultation germaine. ABSENT: rales, rhonchi, wheezes Cardiovascular exam: PRESENT: tachycardia GI/Abdominal exam: PRESENT: normal bowel sounds, soft. ABSENT: distended, guarding, mass, organolmegaly, rebound, tenderness Extremities exam: PRESENT: full ROM. ABSENT: calf tenderness, clubbing, pedal edema Neurological exam: PRESENT: alert, awake, oriented to person, oriented to place, oriented to time, oriented to situation, CN II-XII grossly intact. ABSENT: motor sensory deficit Psychiatric exam: PRESENT: appropriate affect, normal mood. ABSENT: homicidal ideation, suicidal ideation Results Laboratory Results: 05/11/18 07:11 05/11/18 07:11 05/11/18 05/11/18 07:11 07:11 WBC 5.9 RBC 4.39 Hgb 14.2 Hct 40.4 MCV 92 MCH 32.4 MCHC 35.2 RDW 13.6 Plt Count 245 Seg Neutrophils % Not Reportable Lymphocytes % Not Reportable Monocytes % Not Reportable Eosinophils % Not Reportable Basophils % Not Reportable Absolute Neutrophils Not Reportable Absolute Lymphocytes Not Reportable Absolute Monocytes Not Reportable Absolute Eosinophils Not Reportable Absolute Basophils Not Reportable Sodium 136.1 L Potassium 4.1 Chloride 99 Carbon Dioxide 31 H Anion Gap 6 BUN 9 Creatinine 0.60 Est GFR ( Amer) > 60 Est GFR (Non-Af Amer) > 60 Glucose 100 Calcium 8.7 Magnesium 2.1 Total Bilirubin 0.6 AST 54 ALT 79 H Alkaline Phosphatase 95 Total Protein 6.6 Albumin 3.5 05/05/18 21:50 Blood Blood Culture - Final NO GROWTH IN 5 DAYS 05/05/18 21:25 Blood Blood Culture - Final NO GROWTH IN 5 DAYS 05/08/18 11:30 Clean Catch Midstream Urine Culture - Final NO GROWTH 2 DAYS Impressions: Abdomen X-Ray 05/05/18 00:00 IMPRESSION: No evidence for obstruction. Question ascites. Chest X-Ray 05/05/18 12:30 IMPRESSION: NO ACUTE RADIOGRAPHIC FINDING IN THE CHEST. Abdomen/Pelvis CT 05/06/18 00:00 IMPRESSION: Diverticulosis. No acute findings. Assessment & Plan - Diagnosis (1) C. difficile diarrhea Is this a current diagnosis for this admission?: Yes Plan: 05/05/2018-patient was admitted with explosive diarrhea after start taking clindamycin for dental abscess. This stool for C. difficile is positive in the ER. Plan is to admit the patient in telemetry. Started on IV fluids normal saline at 75 cc/h.'s to stop his home antihypertensive medications. Started on a p.o. vancomycin 125 mg every 6 hours. Patient was placed on contact isolation. Acute abdominal series was requested. Blood cultures urine cultures were requested. GI prophylaxis and DVT prophylaxis were initiated. Plan is to do the daily labs to monitor the electrolytes. Started on IV Zofran 4 mg every 6 hours for nausea. 05/06/2018-patient was admitted with C. difficile diarrhea. He is on p.o. vancomycin 125 mg every 6 hours. On contact isolation. He had a to 3 loose bowel movements last night and 1 semisolid stool. Patient states he is feeling much better today. Plan is to continue the present management. 05/07/2018-patient has C. difficile diarrhea and contact isolation he is on p.o. vancomycin 125 mg every 6 hours plan is to continue the present management. Receiving IV fluids. 05/08/2018-patient was admitted with the severe C. difficile diarrhea. Started p.o. vancomycin 125 mg every 6 hours. Blood cultures are negative so far. Plan is to continue the present management. Patient is off the IV fluids. Patient does not have any bowel movement in the last 12 hours. 05/09/2018-patient was admitted with C. difficile diarrhea on p.o. vancomycin 125 mg every 6 hours. Diarrhea is resolved. Patient is having the regular bowel movements. Afebrile. Is off the IV fluids and blood pressure is stable around 140/70. 05/10/2018-patient is admitted for C. difficile diarrhea diarrhea was resolved. He is completed 6 days of vancomycin be going to give 1 more day of p.o. vancomycin and recheck his stool for C. difficile. Patient is afebrile. 05/11/2018-patient is admitted with C. difficile diarrhea. Diarrhea is resolved. On p.o. vancomycin 125 mg every 6 hours. Plan to repeat the C. difficile PCR today. Still on contact isolation. (2) Hypotension Is this a current diagnosis for this admission?: Yes Plan: 05/05/2018-patient blood pressure is 100/70 in the ER. Plan is to hold his home antihypertensive medications, started on IV fluids normal saline at 75 cc/h. To check the vitals every shift. 05/06/2018-patient is admitted with hypotension 161/79. His blood pressures are restarted again except for hydrochlorothiazide. I am going to discontinue his IV fluids. Hypotension is resolved. 05/07/2018-patient's blood pressure today is 156/74. Hypotension is resolved. Presently is on losartan 100 mg p.o. daily, amlodipine 10 mg p.o. daily, propranolol 20 mg p.o. every 8 hours. 05/08/2018-patient blood pressure today is 145/68. Hypotension is resolved. Present medications are losartan 100 mg p.o. daily, amlodipine 10 mg p.o. daily, propranolol 20 mg p.o. every 8 hours. Plan is to continue the present management. 05/09/2018-patient blood pressure today is 140/70. Hypotension is resolved. Patient is presently on losartan 100 mg p.o. daily, amlodipine 10 mg p.o. daily, propranolol 20 mg p.o. every 8 hours. He is also receiving Cardizem 30 mg p.o. every 8 hours. Heart rate is in the 60s. Atrial fibrillation may be secondary to hypokalemia. 3.6 plan to do the EKG now. 05/10/2018-patient came in with hypotension probably secondary to severe diarrhea. Presently his blood pressure is 169/85 on amlodipine 10 mg daily, los fatimah 100 mg p.o. daily, propranolol 20 mg p.o. twice a day. Low-salt diet was advised. To check his blood pressures every shift. 05/12/2018-patient came in with low blood pressures hypotension is resolved today's blood pressure is 175/99. On amlodipine 10 mg daily, losartan 100 mg p.o. daily propranolol 20 mg p.o. twice a day started on hydrochlorothiazide 25 mg p.o. daily today plan is to check the blood pressures every shift. (3) Weakness Is this a current diagnosis for this admission?: Yes Plan: 05/05/2018-patient is complaining of severe weakness secondary to diarrhea. Bed rest was advised and fall precautions are requested. 05/06/2018-patient came in with severe weakness possibly secondary to severe diarrhea. Patient said his weakness is improving. 05/07/2018 weakness most likely secondary to severe diarrhea causing hypotension. Weakness is resolving. 05/08/2018 patient was admitted with severe weakness which was resolving. 05/09/2018 patient was admitted with severe weakness secondary to diarrhea and weakness is resolving. 05/10/2018-patient was admitted with severe weakness secondary to diarrhea weakn ess results resolved. Diarrhea is resolved. 05/11/2018-patient admitted with severe weakness secondary to diarrhea. Weakness is resolved. (4) Spinal stenosis Is this a current diagnosis for this admission?: Yes (5) Hypokalemia Is this a current diagnosis for this admission?: Yes Plan: 05/06/2018-patient came in with potassium of 3.3 is getting K rider and repeat potassium this morning is 2.8 patient is in IV K rider. Hypokalemia most likely secondary to severe diarrhea. 05/07/2018-patient's potassium is 3.0 he is getting K rider IV hypokalemia most likely secondary to C. difficile diarrhea. Plan is to recheck his labs tomorrow. 05/08/2018 repeat potassium levels today is 3.3 patient does not have any loose stools anymore hypokalemia is resolving started on potassium chloride 20 mg p.o. twice daily. 05/09/2018-hypokalemia most likely secondary to severe diarrhea. Diarrhea r esolved potassium level today is 3.6 hypokalemia is resolving. 05/10/2018-patient potassium level is 4.0 today hypokalemia is resolved. 05/11/2018 patient came in with hypokalemia which was persistent initially due to severe diarrhea. Potassium level is 4.1 today. Plan is to continue the present management and hypokalemia is resolved. (6) Atrial fibrillation Is this a current diagnosis for this admission?: Yes Plan: 05/09/2018-patient has new onset atrial fibrillation. May be secondary to hypokalemia. Potassium levels normalized today 3.6. Plan is to repeat the EKG today patient is presently on Cardizem 30 mg p.o. every 8 hours for rate control. Heart rate is 60. echocardiogram report is pending. 05/10/2018-patient has new onset of atrial fibrillation most likely secondary to hypokalemia. Now patient is in sinus arrhythmia. Cardiogram shows EF of 60%. Unable to assess the diastolic function because of the atrial fibrillation. To start aspirin 325 mg p.o. daily. 05/11/2018-patient had a new onset atrial fibrillation during the hospital stay secondary to hypokalemia. Presently he is in sinus rhythm with first-degree AV block. on Aspirin 305 mg p.o. daily no need for anticoagulation. - Time Time Spent with patient: 15-24 minutes Medications reviewed and adjusted accordingly: Yes Anticipated discharge: Home
[2018-05-11] MEDS: POTASSIUM CHLORIDE 10 MEQ CAPSULE.ER PO SCH (10:48)
[2018-05-11] MEDS: AMLODIPINE BESYLATE 10 MG TABLET PO SCH (10:48)
[2018-05-11] MEDS: ENOXAPARIN SODIUM INJ 40 MG/0.4 ML DISP.SYRIN SUBCUT SCH (10:48)
[2018-05-11] MEDS: FINASTERIDE 5 MG TABLET PO SCH (10:48)
[2018-05-11] MEDS: FAMOTIDINE 20 MG TABLET PO SCH ×2 (10:48→22:34)
[2018-05-11] MEDS: PROPRANOLOL HCL 20 MG TABLET PO SCH ×2 (10:48→22:34)
[2018-05-11] MEDS: GUAIFENESIN 600 MG TABLET.SA PO SCH ×2 (10:48→22:34)
[2018-05-11] MEDS ORDERED: PRIMIDONE 250 MG TABLET ONE (22:17)
[2018-05-11] MEDS: PRIMIDONE 250 MG TABLET PO SCH (22:34)
[2018-05-12] MEDS: LEVOTHYROXINE SODIUM 0.15 MG TABLET PO SCH (05:54)
[2018-05-12 10:19] LABS: HEMATOCRIT 42.5 % (37.9-51.0); HEMOGLOBIN 14.8 g/dL (13.5-17.0); MEAN CORPUSCULAR HEMOGLOBIN 32.3 pg (27.0-33.4); MEAN CORPUSCULAR VOLUME 92 fl (80-97); PLATELET COUNT 303 10^3/uL (150-450); RED CELL DISTRIBUTION WIDTH 13.6 % (11.5-14.0); WHITE BLOOD COUNT 6.7 10^3/uL (4.0-10.5)
[2018-05-12 10:44] LABS: ABSOLUTE LYMPHOCYTES# (MANUAL) 0.9 10^3/uL (0.5-4.7); ABSOLUTE MONOCYTES # (MANUAL) 0.6 10^3/uL (0.1-1.4); ABSOLUTE NEUTROPHILS# (MANUAL) 5.2 10^3/uL (1.7-8.2); BASOPHILS % (MANUAL) 0 % (0-2); EOSINOPHILS % (MANUAL) 1 % (0-6); LYMPHOCYTES % (MANUAL) 11 % (13-45); MONOCYTES % (MANUAL) 9 % (3-13); SEGMENTED NEUTROPHILS % (MAN) 77 % (42-78); TOTAL CELLS COUNTED 100
[2018-05-12 10:45] LABS: RBC MORPHOLOGY COMMENT NORMO-CYTIC/CHROMIC
[2018-05-12 11:03] LABS: PLATELET COMMENT ADEQUATE
[2018-05-12 11:08] LABS: ALANINE AMINOTRANSFERASE 90 U/L (21-72); ALBUMIN 3.7 g/dL (3.5-5.0); ALKALINE PHOSPHATASE 99 U/L (38-126); ANION GAP 10 (5-19); ASPARTATE AMINO TRANSFERASE 48 U/L (17-59); BILIRUBIN,DIRECT 0.2 mg/dL (0.0-0.4); BILIRUBIN,TOTAL 0.5 mg/dL (0.2-1.3); BLOOD UREA NITROGEN 11 mg/dL (7-20); CALCIUM 8.9 mg/dL (8.4-10.2); CARBON DIOXIDE 27 mmol/L (22-30); CHLORIDE 97 mmol/L (98-107); GLUCOSE 159 mg/dL (75-110); POTASSIUM 3.9 mmol/L (3.6-5.0); SODIUM 134.1 mmol/L (137-145); TOTAL PROTEIN 6.5 g/dL (6.3-8.2)
[2018-05-12] MEDS: LOSARTAN POTASSIUM 50 MG TABLET PO SCH (11:17)
[2018-05-12] MEDS: AMLODIPINE BESYLATE 10 MG TABLET PO SCH (11:17)
[2018-05-12] MEDS: HYDROCHLOROTHIAZIDE 12.5 MG TABLET PO SCH (11:17)
[2018-05-12] MEDS: POTASSIUM CHLORIDE 10 MEQ CAPSULE.ER PO SCH (11:17)
[2018-05-12] MEDS: ENOXAPARIN SODIUM INJ 40 MG/0.4 ML DISP.SYRIN SUBCUT SCH (11:17)
[2018-05-12] MEDS: ASPIRIN 325 MG TABLET PO SCH (11:17)
[2018-05-12] MEDS: FAMOTIDINE 20 MG TABLET PO SCH (11:17)
[2018-05-12] MEDS: FINASTERIDE 5 MG TABLET PO SCH (11:18)
[2018-05-12] MEDS: CITALOPRAM HYDROBROMIDE 20 MG TABLET PO SCH (11:18)
[2018-05-12] MEDS: GUAIFENESIN 600 MG TABLET.SA PO SCH (11:18)
[2018-05-12] MEDS: PROPRANOLOL HCL 20 MG TABLET PO SCH (11:18)
[2018-05-12 13:03] VITALS: BP 132/73
--- NOTE | 2018-05-12 14:49 | PDOC DISCHARGE SUMMARY ---
General - Admit/Disc Date/PCP Admission Date/Primary Care Provider: 05/05/18 17:33 EDGAR FOUNTAIN MD Discharge Date: 05/12/18 - Discharge Diagnosis (1) C. difficile diarrhea Is this a current diagnosis for this admission?: Yes Summary: 05/05/2018-patient was admitted with explosive diarrhea after start taking clindamycin for dental abscess. This stool for C. difficile is positive in the ER. Plan is to admit the patient in telemetry. Started on IV fluids normal saline at 75 cc/h.'s to stop his home antihypertensive medications. Started on a p.o. vancomycin 125 mg every 6 hours. Patient was placed on contact isolation. Acute abdominal series was requested. Blood cultures urine cultures were requested. GI prophylaxis and DVT prophylaxis were initiated. Plan is to do the daily labs to monitor the electrolytes. Started on IV Zofran 4 mg every 6 hours for nausea. 05/06/2018-patient was admitted with C. difficile diarrhea. He is on p.o. vancomycin 125 mg every 6 hours. On contact isolation. He had a to 3 loose bowel movements last night and 1 semisolid stool. Patient states he is feeling much better today. Plan is to continue the present management. 05/07/2018-patient has C. difficile diarrhea and contact isolation he is on p.o. vancomycin 125 mg every 6 hours plan is to continue the present management. Receiving IV fluids. 05/08/2018-patient was admitted with the severe C. difficile diarrhea. Started p.o. vancomycin 125 mg every 6 hours. Blood cultures are negative so far. Plan is to continue the present management. Patient is off the IV fluids. Patient does not have any bowel movement in the last 12 hours. 05/09/2018-patient was admitted with C. difficile diarrhea on p.o. vancomycin 125 mg every 6 hours. Diarrhea is resolved. Patient is having the regular bowel movements. Afebrile. Is off the IV fluids and blood pressure is stable around 140/70. 05/10/2018-patient is admitted for C. difficile diarrhea diarrhea was resolved. He is completed 6 days of vancomycin be going to give 1 more day of p.o. vancomycin and recheck his stool for C. difficile. Patient is afebrile. 05/11/2018-patient is admitted with C. difficile diarrhea. Diarrhea is resolved. On p.o. vancomycin 125 mg every 6 hours. Plan to repeat the C. difficile PCR today. Still on contact isolation. 05/12/2018 patient was admitted with severe diarrhea found to have C. difficile positive in stool he was treated with p.o. vancomycin 125 mg every 6 hours for 7 days diarrhea was resolved. P.o. vancomycin was discontinued. Contact isolation was discontinued. No further loose stools for the last 48 hours. pt Is going home today and we can resume the home health . (2) Hypotension Is this a current diagnosis for this admission?: Yes Summary: 05/05/2018-patient blood pressure is 100/70 in the ER. Plan is to hold his home antihypertensive medications, started on IV fluids normal saline at 75 cc/h. To check the vitals every shift. 05/06/2018-patient is admitted with hypotension 161/79. His blood pressures are restarted again except for hydrochlorothiazide. I am going to discontinue his IV fluids. Hypotension is resolved. 05/07/2018-patient's blood pressure today is 156/74. Hypotension is resolved. Presently is on losartan 100 mg p.o. daily, amlodipine 10 mg p.o. daily, propranolol 20 mg p.o. every 8 hours. 05/08/2018-patient blood pressure today is 145/68. Hypotension is resolved. Present medications are losartan 100 mg p.o. daily, amlodipine 10 mg p.o. daily, propranolol 20 mg p.o. every 8 hours. Plan is to continue the present management. 05/09/2018-patient blood pressure today is 140/70. Hypotension is resolved. Patient is presently on losartan 100 mg p.o. daily, amlodipine 10 mg p.o. daily, propranolol 20 mg p.o. every 8 hours. He is also receiving Cardizem 30 mg p.o. every 8 hours. Heart rate is in the 60s. Atrial fibrillation may be secondary to hypokalemia. 3.6 plan to do the EKG now. 05/10/2018-patient came in with hypotension probably secondary to severe diarrhea. Presently his blood pressure is 169/85 on amlodipine 10 mg daily, losartan 100 mg p.o. daily, propranolol 20 mg p.o. twice a day. Low-salt diet was advised. To check his blood pressures every shift. 05/11/2018-patient came in with low blood pressures hypotension is resolved toda y's blood pressure is 175/99. On amlodipine 10 mg daily, losartan 100 mg p.o. daily propranolol 20 mg p.o. twice a day started on hydrochlorothiazide 25 mg p.o. daily today plan is to check the blood pressures every shift. 05/12/2018 patient blood pressure today is 147/90, presently on amlodipine 10 mg daily, losartan 100 mg p.o. daily, propranolol 20 mg p.o. twice daily, hydrochlorothiazide 12.5 mg twice daily patient was advised to resume the home medications upon discharge. (3) Weakness Is this a current diagnosis for this admission?: Yes Summary: 05/05/2018-patient is complaining of severe weakness secondary to diarrhea. Bed rest was advised and fall precautions are requested. 05/06/2018-patient came in with severe weakness possibly secondary to severe diarrhea. Patient said his weakness is improving. 05/07/2018 weakness most likely secondary to severe diarrhea causing hypotension. Weakness is resolving. 05/08/2018 patient was admitted with severe weakness which was resolving. 05/09/2018 patient was admitted with severe weakness secondary to diarrhea and weakness is resolving. 05/10/2018-patient was admitted with severe weakness secondary to diarrhea weakness results resolved. Diarrhea is resolved. 05/11/2018-patient admitted with severe weakness secondary to diarrhea. Weakness is resolved. 05/12/2018-patient was admitted with severe weakness secondary to severe diarrhea. Weakness is resolved. (4) Spinal stenosis Is this a current diagnosis for this admission?: Yes (5) Hypokalemia Is this a current diagnosis for this admission?: Yes Summary: 05/06/2018-patient came in with potassium of 3.3 is getting K rider and repeat potassium this morning is 2.8 patient is in IV K rider. Hypokalemia most likely secondary to severe diarrhea. 05/07/2018-patient's potassium is 3.0 he is getting K rider IV hypokalemia most likely secondary to C. difficile diarrhea. Plan is to recheck his labs tomorrow. 05/08/2018 repeat potassium levels today is 3.3 patient does not have any loose stools anymore hypokalemia is resolving started on potassium chloride 20 mg p.o. twice daily. 05/09/2018-hypokalemia most likely secondary to severe diarrhea. Diarrhea resolved potassium level today is 3.6 hypokalemia is resolving. 05/10/2018-patient potassium level is 4.0 today hypokalemia is resolved. 05/11/2018 patient came in with hypokalemia which was persistent initially due to severe diarrhea. Potassium level is 4.1 today. Plan is to continue the present management and hypokalemia is resolved. 05/12/2018-patient has persistent hypokalemia which is now resolved. Today's potassium is 3.9. Hypokalemia is resolved. hypoKalemia most likely secondary to diarrhea. (6) Atrial fibrillation Is this a current diagnosis for this admission?: Yes Summary: 05/12/2018-patient has paroxysmal atrial fibrillation lasted for 48 hours in the hospital most likely secondary to hypokalemia. Now he is in sinus rhythm with first-degree heart block. Dr. Jama wants to arrange for event monitor as an outpatient. Patient was advised to follow-up with Dr. Jama in few days in his office. - Additional Information Resuscitation Status: Full Code Discharge Diet: Cardiac Discharge Activity: Activity As Tolerated Prescriptions: Hydrochlorothiazide [Hydrodiuril 12.5 mg Tablet] 12.5 mg PO Q12 #60 tablet Propranolol HCl [Inderal 20 mg Tablet] 20 mg PO Q12 #60 tablet Home Medications: Amlodipine Besylate [Norvasc 10 mg Tablet] 10 mg PO DAILY 05/05/18 Citalopram Hydrobromide [Celexa 40 mg Tablet] 40 mg PO DAILY 05/05/18 Finasteride [Proscar 5 mg Tablet] 5 mg PO DAILY 05/05/18 Irbesartan [Avapro] 300 mg PO DAILY 05/05/18 Levothyroxine Sodium 150 mcg PO Q6AM 05/05/18 Potassium Chloride 10 meq PO DAILY 05/05/18 Primidone [Mysoline 250 mg Tablet] 250 mg PO QHS 05/05/18 Ubidecarenone [Co Q-10] 100 mg PO DAILY 05/05/18 Citalopram Hydrobromide [Celexa 20 mg Tablet] 40 mg PO DAILY tablet 05/12/18 Finasteride [Proscar 5 mg Tablet] 5 mg PO DAILY tablet 05/12/18 Hydrochlorothiazide [Hydrodiuril 12.5 mg Tablet] 12.5 mg PO Q12 #60 tablet 05/12/18 Levothyroxine Sodium [Synthroid 0.15 mg Tablet] 0.15 mg PO Q6AM tablet 05/12/18 Propranolol HCl [Inderal 20 mg Tablet] 20 mg PO Q12 #60 tablet 05/12/18 History of Present Illness History of Present Illness: LARA MULLINS is a 87 year old male with history of hypertension, depression, came to the emergency room with explosive diarrhea for the last 6 days. Prior to this patient was started on p.o. clindamycin for her dental abscess. No fever no nausea no vomiting's reported. Family told me patient has a low-grade fever 99.4, 99.6 like that. Patient is also complaining of increasing bloating sensation in the abdomen. No other complaints. No blood in the stool. Stool positive for C. difficile in the ER. Patient was on contact isolation. medical consult was called for further management. Physical Exam Vital Signs: Temp Pulse Resp BP Pulse Ox 98.1 F 64 18 132/73 H 93 05/12/18 13:00 05/12/18 13:00 05/12/18 13:00 05/12/18 13:00 05/12/18 13:00 Intake & Output 05/11/18 05/12/18 05/13/18 06:59 06:59 06:59 Intake Total 2730 1080 Output Total 1200 Balance 1530 1080 Weight 86.2 kg 85.7 kg General appearance: PRESENT: no acute distress Head exam: PRESENT: atraumatic Eye exam: PRESENT: PERRLA Mouth exam: PRESENT: moist, tongue midline Neck exam: ABSENT: carotid bruit, JVD, lymphadenopathy, thyromegaly Respiratory exam: PRESENT: clear to auscultation germaine. ABSENT: rales, rhonchi, wheezes Cardiovascular exam: PRESENT: RRR. ABSENT: diastolic murmur, rubs, systolic murmur GI/Abdominal exam: PRESENT: normal bowel sounds, soft. ABSENT: distended, guarding, mass, organolmegaly, rebound, tenderness Extremities exam: PRESENT: full ROM. ABSENT: calf tenderness, clubbing, pedal edema Neurological exam: PRESENT: alert, awake, oriented to person, oriented to place, oriented to time, oriented to situation, CN II-XII grossly intact. ABSENT: motor sensory deficit Psychiatric exam: PRESENT: appropriate affect, normal mood. ABSENT: homicidal ideation, suicidal ideation Skin exam: PRESENT: dry, intact, warm. ABSENT: cyanosis, rash Results Laboratory Results: 05/12/18 09:41 05/12/18 09:41 05/12/18 05/12/18 09:41 09:41 WBC 6.7 RBC 4.60 Hgb 14.8 Hct 42.5 MCV 92 MCH 32.3 MCHC 35.0 RDW 13.6 Plt Count 303 Seg Neutrophils % Not Reportable Lymphocytes % Not Reportable Monocytes % Not Reportable Eosinophils % Not Reportable Basophils % Not Reportable Absolute Neutrophils Not Reportable Absolute Lymphocytes Not Reportable Absolute Monocytes Not Reportable Absolute Eosinophils Not Reportable Absolute Basophils Not Reportable Sodium 134.1 L Potassium 3.9 Chloride 97 L Carbon Dioxide 27 Anion Gap 10 BUN 11 Creatinine 0.62 Est GFR ( Amer) > 60 Est GFR (Non-Af Amer) > 60 Glucose 159 H Calcium 8.9 Magnesium 2.0 Total Bilirubin 0.5 AST 48 ALT 90 H Alkaline Phosphatase 99 Total Protein 6.5 Albumin 3.7 Impressions: Abdomen X-Ray 05/05/18 00:00 IMPRESSION: No evidence for obstruction. Question ascites. Chest X-Ray 05/05/18 12:30 IMPRESSION: NO ACUTE RADIOGRAPHIC FINDING IN THE CHEST. Abdomen/Pelvis CT 05/06/18 00:00 IMPRESSION: Diverticulosis. No acute findings. Qualifiers - * PATIENT BEING DISCHARGED WITH ANY OF THE FOLLOWING DIAGNOSIS: No VTE patient discharged on overlapping Therapy?: No
== END 2018-05-12 14:00 | disposition home health service (06) | DRG 373 ==
LOC: ER 11:22 → EH 17:33 → 4S 22:11
PROVIDERS: ADMIT Internal Medicine; ATTEND Internal Medicine
DX: A04.72 Enterocolitis due to Clostridium difficile, not specified as recurrent (principal); I10 Essential (primary) hypertension; F32.9 Major depressive disorder, single episode, unspecified; M19.90 Unspecified osteoarthritis, unspecified site; I95.9 Hypotension, unspecified; M48.00 Spinal stenosis, site unspecified; Z98.890 Other specified postprocedural states; E87.6 Hypokalemia; I48.91 Unspecified atrial fibrillation; E03.9 Hypothyroidism, unspecified; Z79.899 Other long term (current) drug therapy; Z79.890 Hormone replacement therapy
CPT/HCPCS: 36415; 71046; 74019; 74176; 80053; 80076; 81001; 83735; 84443; 85025; 87040; 87045; 87086; 87205; 87493; 93005; 93010; 93306; 99285; J1650; J2270; J3370; J3480; J3490; J7120; J7620; S0028